=== PATIENT | male | born 1950 | race Two or more races ===

== ENCOUNTER 2019-05-17 16:29 | Inpatient (IN) | payer OTHER ==
[~2019-05-17] VITALS: Ht 168.9 cm; Wt 65.0 kg
[2019-05-17] MEDS ORDERED: MAGNESIUM HYDROXIDE 2,400 MG/30 ML ORAL.SUSP. PO PRN (17:30)
[2019-05-17] MEDS ORDERED: METHYL SALICYLATE/MENTHOL TOPICAL OINTMENT 29GM TUBE. TP PRN (17:30)
[2019-05-17] MEDS ORDERED: MAG HYDROX/AL HYDROX/SIMETH 30 ML ORAL.SUSP PO PRN (17:30)
[2019-05-17] MEDS ORDERED: ALBUTEROL SULFATE 2.5 MG/3 ML NEBU. INH PRN (17:45)
[2019-05-17] MEDS ORDERED: ATOR40TA59 PO (17:48)
[2019-05-17] MEDS ORDERED: DONE10TA7 PO (17:48)
[2019-05-17] MEDS ORDERED: DIVA500T17 PO (17:48)
[2019-05-17] MEDS ORDERED: BUDE10.22 IH (17:48)
[2019-05-17] MEDS ORDERED: DILT120C85 PO (17:48)
[2019-05-17] MEDS ORDERED: MELA3TAB2 PO (17:48)
[2019-05-17] MEDS ORDERED: APIX5TAB5 PO (17:48)
[2019-05-17] MEDS ORDERED: TRAZ-120 PO (17:48)
[2019-05-17] MEDS ORDERED: NICO1PAT25 TD (17:48)
[2019-05-17] MEDS ORDERED: ALBU2.5V8 INH (17:48)
[2019-05-17] MEDS ORDERED: ALLO300T PO (17:48)
[2019-05-17] MEDS ORDERED: PARO40TA3 PO (17:48)
[2019-05-17] MEDS ORDERED: GABA300C8 PO (17:48)
[2019-05-17] MEDS: traZODone 50 MG TABLET. PO SCH (19:47)
[2019-05-17] MEDS: GABAPENTIN 300 MG CAPSULE. PO SCH (19:47)
[2019-05-17] MEDS: APIXABAN 5 MG TABLET. PO SCH (19:47)
[2019-05-17] MEDS: ATORVASTATIN CALCIUM 20 MG TABLET PO SCH (19:47)
[2019-05-17] MEDS: ALBUTEROL SULFATE 2.5 MG/3 ML NEBU. NEB SCH (20:32)
[2019-05-17] MEDS: BUDESONIDE 0.5 MG/2 ML NEBU NEB SCH (20:34)
[2019-05-17 20:45] LABS: BACTERIA,URINE FEW /HPF (0-FEW); BILIRUBIN,URINE NEG (NEG); CLARITY,URINE HAZY; COLOR,URINE YELLOW; GLUCOSE,URINE NEG (NEG); NITRITE,URINE NEG (NEG); RBC,URINE OCC /HPF (0-2); SQUAMOUS EPITHELIAL CELL,UR OCC /LPF; UROBILINOGEN,URINE 0.2 mg/dL (0.2 mg/dL)
[2019-05-17] MEDS ORDERED: NON FORMULARY ITEM (Budesonide/Formoterol Fumarate (Symbicort 80-4.5 Mcg Inhaler) 2 PUFF) IH SCH (21:00)
--- NOTE | 2019-05-17 22:22 | PDOC ---
Exam Note: Samm Note: Please also refer to the separate dictated note~for this date of service dictated separately. Discussed the patient with Nursing staff reviewed the chart.~Reviewed interim history and current functioning. Reviewed vital signs,~Labs/ Radiology~and current medications noted below. Continue current treatment with the changes noted in the dictated addendum note Assessment: Vital Signs/I&O: Vital Signs Date Time Temp Pulse Resp B/P (MAP) Pulse Ox O2 Delivery O2 Flow Rate FiO2 05/17/19 20:35 96 Room Air Labs: Laboratory Tests Test 05/17/19 19:00 Urine Collection Type Unknown Urine Color Yellow Urine Clarity Hazy Urine pH 6.0 Urine Specific [place] 1.025 Urine Protein Neg (NEG-TRACE) Urine Glucose (UA) Neg mg/dL (NEG) Urine Ketones (Stick) Neg mg/dL (NEG) Urine Blood Trace (NEG) Urine Nitrite Neg (NEG) Urine Bilirubin Neg (NEG) Urine Urobilinogen Dipstick 0.2 mg/dL (0.2 mg/dL) Urine Leukocyte Esterase Trace (NEG) Urine RBC Occ /HPF (0-2) Urine WBC 1-4 /HPF (0-4) Urine Squamous Epithelial Cells Occ /LPF Urine Bacteria Few /HPF (0-FEW) Current Medications: Meds: Current Medications Medications (Trade) Dose Ordered Sig/Andie Route PRN Reason Start Time Stop Time Status Last Admin Dose Admin Apixaban (Eliquis) 5 mg BID PO 05/17/19 21:00 05/17/19 19:47 Atorvastatin Calcium (Lipitor) 40 mg QHS PO 05/17/19 21:00 05/17/19 19:47 Gabapentin (Neurontin) 300 mg QID PO 05/17/19 21:00 05/17/19 19:47 Trazodone HCl (Desyrel) 12.5 mg BID PO 05/17/19 21:00 05/17/19 19:47 Albuterol Sulfate (Ventolin) 2.5 mg RTQID NEB 05/17/19 20:00 05/17/19 20:32 Budesonide (Pulmicort) 0.5 mg RTBID NEB 05/17/19 20:00 05/17/19 20:34 I have reviewed the current psychotropics carefully including drug interactions. Risk benefit ratio favors no change other than as noted in my dictated progress note. Diagnosis: Problems: (1) Alcohol-induced persisting dementia (2) Anxiety disorder (3) Dementia associated with alcoholism with behavioral disturbance (4) Major neurocognitive disorder, due to vascular disease, with behavioral disturbance, mild (5) Mixed Alzheimer's and vascular dementia with behavior disturbances (6) Impulse control disorder AKI COX MD May 17, 2019 22:22
[2019-05-18] MEDS: BUDESONIDE 0.5 MG/2 ML NEBU NEB SCH ×2 (05:57→20:02)
[2019-05-18] MEDS: ALBUTEROL SULFATE 2.5 MG/3 ML NEBU. NEB SCH ×4 (05:59→20:02)
[2019-05-18 06:32] VITALS: BP 109/65
[2019-05-18 07:26] LABS: BASO # 0.1 x10^3/uL (0.0-0.2); BASO % 1 % (0-3); EOS # 0.1 x10^3/uL (0.0-0.7); EOS % 1 % (0-3); HEMATOCRIT 40.9 % (39.0-53.0); HEMOGLOBIN 13.2 g/dL (13.0-17.5); LYMPH # 2.1 x10^3/uL (1.0-4.8); LYMPH % 23 % (24-48); MEAN CORPUSCULAR HEMOGLOBIN 32 pg (25-35); MEAN CORPUSCULAR HGB CONC 32 g/dL (31-37); MEAN CORPUSCULAR VOLUME 98 fL (79-100); MONO # 0.6 x10^3/uL (0.0-1.1); MONO % 7 % (0-9); NEUT # 6.1 x10^3uL (1.8-7.7); NEUT % 68 % (31-73); PLATELET COUNT 278 x10^3/uL (140-400); RED BLOOD COUNT 4.19 x10^6/uL (4.30-5.70); RED CELL DISTRIBUTION WIDTH 15.1 % (11.5-14.5)
[2019-05-18 07:48] LABS: ALBUMIN 3.1 g/dL (3.4-5.0); CALCIUM 9.2 mg/dL (8.5-10.1); CREATININE 0.8 mg/dL (0.7-1.3); GFR 95.8; MAGNESIUM 1.7 mg/dL (1.8-2.4); POTASSIUM 4.2 mmol/L (3.5-5.1); TOTAL BILIRUBIN 0.3 mg/dL (0.2-1.0); TOTAL PROTEIN 6.1 g/dL (6.4-8.2); VAL ACID 24 mcg/mL (50-100)
[2019-05-18] MEDS ORDERED: NON FORMULARY ITEM (Nicotine (NICODERM CQ 14mg) 1 PATCH) TD SCH (09:00)
[2019-05-18] MEDS: traZODone 50 MG TABLET. PO SCH (09:11)
[2019-05-18] MEDS: NICOTINE 14MG PATCH. TD SCH (09:11)
[2019-05-18] MEDS: PARoxetine 20 MG TABLET PO SCH (09:11)
[2019-05-18] MEDS: DONEPEZIL HCL 10 MG TABLET PO SCH (09:12)
[2019-05-18] MEDS: ALLOPURINOL 300 MG TABLET. PO SCH (09:12)
[2019-05-18] MEDS: GABAPENTIN 300 MG CAPSULE. PO SCH ×4 (09:12→20:09)
[2019-05-18] MEDS: APIXABAN 5 MG TABLET. PO SCH ×2 (09:12→20:08)
[2019-05-18] MEDS ORDERED: DIVALPROEX ER 500 MG TAB.ER.24H PO SCH (12:00)
[2019-05-18 14:28] LABS: THYROID STIM HORMONE (TSH) 3.776 uIU/mL (0.358-3.740)
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
[2019-05-18] MEDS: QUEtiapine 25 MG TABLET. PO SCH (16:28)
[2019-05-18 16:30] VITALS: BP 99/61
[2019-05-18 19:09] LABS: THYROXINE 5.9 ug/dL (4.5-12.0)
--- NOTE | 2019-05-18 19:10 | RAD ---
INDICATION: Wheezing COMPARISON: None. FINDINGS: 2 view of chest obtained. Disorganization of the pulmonary markings bilaterally. Deformity of some ribs could be from old fracture. Mild haziness at right chest base IMPRESSION: 1. Disorganized pulmonary markings bilaterally. Would correlate for possible causes such as emphysema. 2. Questionable hazy opacity at right chest base. Could be secondary to a region of atelectasis given the location however early infiltrate can have this appearance if there is high clinical concern for infection. 3. Compression fracture near thoracic lumbar junction. Electronically signed by: Aries Lange MD (05/18/2019 7:07 PM) [facility]
[2019-05-18] MEDS: ATORVASTATIN CALCIUM 20 MG TABLET PO SCH (20:08)
[2019-05-18] MEDS: MELATONIN 3 MG TABLET PO PRN (20:09)
[2019-05-18] MEDS: DIVALPROEX ER 500 MG TAB.ER.24H PO SCH (20:10)
--- NOTE | 2019-05-18 22:38 | PDOC ---
Exam Note: Samm Note: Please also refer to the separate dictated note~for this date of service dictated separately.~Patient seen individually. Discussed the patient with Nursing staff reviewed the chart.~Reviewed interim history and current functioning. Reviewed vital signs,~Labs/ Radiology~and current medications noted below. Continue current treatment with the changes noted in the dictated addendum note Assessment: Vital Signs/I&O: Vital Signs Date Time Temp Pulse Resp B/P (MAP) Pulse Ox O2 Delivery O2 Flow Rate FiO2 05/18/19 20:04 97 Room Air 05/18/19 16:30 98.3 58 20 99/61 (74) I & O 05/17/19 05/17/19 05/18/19 14:59 22:59 06:59 Intake Total 120 ml Balance 120 ml Labs: Laboratory Tests Test 05/18/19 07:14 White Blood Count 9.0 x10^3/uL (4.0-11.0) Red Blood Count 4.19 x10^6/uL (4.30-5.70) L Hemoglobin 13.2 g/dL (13.0-17.5) Hematocrit 40.9 % (39.0-53.0) Mean Corpuscular Volume 98 fL (79-100) Mean Corpuscular Hemoglobin 32 pg (25-35) Mean Corpuscular Hemoglobin Concent 32 g/dL (31-37) Red Cell Distribution Width 15.1 % (11.5-14.5) H Platelet Count 278 x10^3/uL (140-400) Neutrophils (%) (Auto) 68 % (31-73) Lymphocytes (%) (Auto) 23 % (24-48) L Monocytes (%) (Auto) 7 % (0-9) Eosinophils (%) (Auto) 1 % (0-3) Basophils (%) (Auto) 1 % (0-3) Neutrophils # (Auto) 6.1 x10^3uL (1.8-7.7) Lymphocytes # (Auto) 2.1 x10^3/uL (1.0-4.8) Monocytes # (Auto) 0.6 x10^3/uL (0.0-1.1) Eosinophils # (Auto) 0.1 x10^3/uL (0.0-0.7) Basophils # (Auto) 0.1 x10^3/uL (0.0-0.2) Sodium Level 141 mmol/L (136-145) Potassium Level 4.2 mmol/L (3.5-5.1) Chloride Level 105 mmol/L (98-107) Carbon Dioxide Level 30 mmol/L (21-32) Anion Gap 6 (6-14) Blood Urea Nitrogen 13 mg/dL (8-26) Creatinine 0.8 mg/dL (0.7-1.3) Estimated GFR (Cockcroft-Gault) 95.8 BUN/Creatinine Ratio 16 (6-20) Glucose Level 98 mg/dL (70-99) Calcium Level 9.2 mg/dL (8.5-10.1) Magnesium Level 1.7 mg/dL (1.8-2.4) L Iron Level 58 ug/dL (65-175) L Total Iron Binding Capacity 332 ug/dL (250-450) Iron Saturation 17 % (15-34) Total Bilirubin 0.3 mg/dL (0.2-1.0) Aspartate Amino Transferase (AST) 16 U/L (15-37) Alanine Aminotransferase (ALT) 30 U/L (16-63) Alkaline Phosphatase 100 U/L (46-116) Total Protein 6.1 g/dL (6.4-8.2) L Albumin 3.1 g/dL (3.4-5.0) L Albumin/Globulin Ratio 1.0 (1.0-1.7) Triglycerides Level 56 mg/dL (0-150) Cholesterol Level 115 mg/dL (0-200) LDL Cholesterol, Calculated 55 mg/dL (0-100) VLDL Cholesterol, Calculated 11 mg/dL (0-40) Non-HDL Cholesterol Calculated 66 mg/dL (0-129) HDL Cholesterol 49 mg/dL (40-60) Cholesterol/HDL Ratio 2.0 25-Hydroxy Vitamin D Total 34.1 ng/mL (30-100) Thyroid Stimulating Hormone (TSH) 3.776 uIU/mL (0.358-3.740) Thyroxine (T4) 5.9 ug/dL (4.5-12.0) Total Triiodothyronine (TT3) 102 ng/dL (71-180) Valproic Acid Level 24 mcg/mL (50-100) L Valproic Acid Last Dose Date 05/17/19 Valproic Acid Last Dose Time 1200 Treponema pallidum Antibody Nonreactive (Nonreactive) Current Medications: Meds: Current Medications Medications (Trade) Dose Ordered Sig/Andie Route PRN Reason Start Time Stop Time Status Last Admin Dose Admin Nicotine (Nicoderm Cq 14mg) 1 patch DAILY TD 05/18/19 09:00 05/18/19 09:11 Allopurinol (Zyloprim) 300 mg DAILY PO 05/18/19 09:00 05/18/19 09:12 Diltiazem HCl (Cardizem 24hr Cd) 120 mg DAILY PO 05/18/19 09:00 05/18/19 09:11 Donepezil HCl (Aricept) 10 mg DAILY PO 05/18/19 09:00 05/18/19 09:12 Paroxetine HCl (Paxil) 40 mg DAILY PO 05/18/19 09:00 05/18/19 09:11 Divalproex Sodium (Depakote Er) 1,000 mg DAILY@2000 PO 05/18/19 20:00 05/18/19 20:10 Quetiapine Fumarate (SEROquel) 12.5 mg 0900,1700 PO 05/18/19 17:00 05/18/19 16:28 I have reviewed the current psychotropics carefully including drug interactions. Risk benefit ratio favors no change other than as noted in my dictated progress note. Diagnosis: Problems: (1) Alcohol-induced persisting dementia (2) Anxiety disorder (3) Dementia associated with alcoholism with behavioral disturbance (4) Major neurocognitive disorder, due to vascular disease, with behavioral disturbance, mild (5) Mixed Alzheimer's and vascular dementia with behavior disturbances (6) Impulse control disorder AKI COX MD May 18, 2019 22:38
[2019-05-19 02:07] LABS: HEMOGLOBIN A1C 6.6 % (4.8-5.6)
[2019-05-19] MEDS: ALBUTEROL SULFATE 2.5 MG/3 ML NEBU. NEB SCH ×4 (06:00→20:11)
[2019-05-19] MEDS: BUDESONIDE 0.5 MG/2 ML NEBU NEB SCH ×2 (06:00→20:11)
[2019-05-19 06:24] VITALS: BP 103/65
[2019-05-19] MEDS: NICOTINE 14MG PATCH. TD SCH (08:52)
[2019-05-19] MEDS: DONEPEZIL HCL 10 MG TABLET PO SCH (08:53)
[2019-05-19] MEDS: QUEtiapine 25 MG TABLET. PO SCH ×2 (08:53→16:41)
[2019-05-19] MEDS: ALLOPURINOL 300 MG TABLET. PO SCH (08:53)
[2019-05-19] MEDS: PARoxetine 20 MG TABLET PO SCH (08:53)
[2019-05-19] MEDS: APIXABAN 5 MG TABLET. PO SCH ×2 (08:53→19:58)
[2019-05-19] MEDS: GABAPENTIN 300 MG CAPSULE. PO SCH ×4 (08:54→19:58)
[2019-05-19] MEDS: ACETAMINOPHEN 325 MG TABLET PO PRN (13:26)
[2019-05-19] MEDS: CETIRIZINE HCL 10 MG TABLET PO SCH (13:26)
[2019-05-19] MEDS: FLUTICASONE 50MCG/NASAL SPRAY 16GM BOTTLE. NS SCH (14:00)
--- NOTE | 2019-05-19 15:23 | RAD ---
Examination: CT CHEST WO CONTRAST History: Abnormal finding on chest x-ray Comparison/Correlation: 05/18/2019 two-view chest x-ray exam Findings: Axial images of chest were obtained without contrast. Sagittal and coronal reformatted images were provided. Significant motion throughout the exam on multiple images including at the lower lung paredes may limit assessment. The anterior right calcific sulcus was not included on this exam isn't entirely. Calcified nodule at the anterior left upper lung field noted. No infiltrate or pleural effusion. Tracheal bronchial tree is grossly unremarkable. Diffuse marked calcification of the coronary arteries is notable. No pericardial or pleural effusion. No infiltrates. No large pulmonary nodule or mass. Resection of a small nodule would likely be limited with the motion present on images obtained. Small hiatal hernia is present Multiple old right-sided rib fractures are present. Degenerative disc space narrowing of the lower cervical spine. T12 vertebral body compression deformity is present. Impression: No infiltrates. Limited exam. Hiatal hernia. T12 compression wedge deformity of indeterminate age. PQRS Compliance Statement: One or more of the following individualized dose reduction techniques were utilized for this examination: 1. Automated exposure control 2. Adjustment of the mA and/or kV according to patient size 3. Use of iterative reconstruction technique Electronically signed by: Ramírez Seth MD (05/19/2019 3:20 PM) [id number]
[2019-05-19 15:55] VITALS: BP 102/66
--- NOTE | 2019-05-19 19:28 | CONS ---
DATE OF CONSULTATION: 05/18/2019 HISTORY OF PRESENT ILLNESS: The patient is a 68-year-old male patient who has been living at [facility] for the past 10 years, has been getting progressively more confused, specifically for short term events, more so since he developed pneumonia, was treated at that time at [facility]. Has been wondering, agitated with cares, exit seeking, disruptive, delusional and much more confused. He has had sleep and appetite changes and mood swings, was admitted for inpatient psychiatric stabilization. PAST PSYCHIATRIC HISTORY: Significant for alcohol abuse and dependence and progressive dementia, delusion, depression and mood swings. PAST MEDICAL HISTORY: Significant for pulmonary embolism, type 2 diabetes, chronic obstructive pulmonary disease, coronary artery disease, hyperlipidemia, peripheral neuropathy, gout, prostate cancer, and mixed PTSD. ALLERGIES: He is allergic to ERYTHROMYCIN. CODE STATUS: DNR. FAMILY HISTORY: Noncontributory. SOCIAL HISTORY: He has been a resident at [facility]. He used to be a smoker, has also a history of extensive alcohol abuse. MEDICATIONS: He is currently on following medications: He is on Aricept 10 mg once a day, albuterol sulfate 2 puffs every 8 hours, nicotine 14 mg topically daily, apixaban 5 mg twice a day, atorvastatin calcium 40 mg at bedtime, diltiazem 120 mg daily, divalproex sodium 500 mg at noon, gabapentin 300 mg 4 times a day, paroxetine 40 mg once a day, trazodone 12.5 mg twice a day, Symbicort 80/4.5 two puffs twice a day, allopurinol 300 mg daily, melatonin 3 mg at bedtime. PHYSICAL EXAMINATION: GENERAL: When I examined him, the patient looked somewhat pale, but no jaundice, cyanosis, or thyromegaly. No jugular venous distension. No limb edema. VITAL SIGNS: His heart rate was 58, blood pressure was 99/61, temperature was 98.3, respiratory rate 20, and oxygen saturation was 97%. HEAD, EYES, EARS, NOSE, AND THROAT: Showed normocephalic, atraumatic. NECK: Supple. HEART: Showed normal first and second heart sounds. No gallop, rub, or murmur. CHEST: Clear to auscultation. No crepitation or rhonchi. ABDOMEN: Distended, soft. No guarding or rigidity. No organomegaly. All hernial orifice intact. Bowel sounds normal. NEUROLOGIC: He was demented, but without any obvious lateralizing sign. All his cranial nerves are intact. EXTREMITIES: He moves extremities without difficulty, ambulates without assistance or assistive devices, however, he seemed to be unsteady on his feet. LABORATORY DATA: His lab work showed a white cell count 9000, hemoglobin 13, hematocrit 41, MCV 98 and platelet count 278,000. Serum sodium 141, potassium 4.2, chloride 105, bicarbonate 30, anion gap of 6, BUN 13, creatinine 0.8, estimated GFR was 96 mL per minute. His calcium and magnesium was normal. Serum iron, TIBC and iron saturation were consistent with iron deficiency anemia. His urinalysis was essentially unremarkable. Toxic screen was negative and Treponema pallidum antibodies was nonreactive. ASSESSMENT AND PLAN: In summary, this is a 68-year-old male patient who has been living at [facility] for the last 10 years, has been getting progressively more confused, specifically for short term events, more so since he developed pneumonia and was treated at [facility] in the recent past. Has multiple medical problems including type 2 diabetes mellitus, chronic obstructive pulmonary disease, pulmonary embolism, hyperlipidemia, peripheral neuropathy, gout, prostate cancer and posttraumatic stress disorder. All in all, the patient seemed to be medically stable. I will definitely continue all his current medication and follow all his labs still pending and will make any necessary recommendation. Thank you, Dr. Singh for allowing me to participate in the care of this patient. MALISSA MCDOWELL MD DR: NANCY/alisa JOB#: [id number] / [id number]
[2019-05-19] MEDS: ATORVASTATIN CALCIUM 20 MG TABLET PO SCH (19:58)
[2019-05-19] MEDS: DIVALPROEX ER 500 MG TAB.ER.24H PO SCH (19:58)
--- NOTE | 2019-05-19 20:44 | PN ---
DATE: 05/18/2019 PSYCHIATRIC PROGRESS NOTE This late entry 05/18/2019 covers elements not covered in my initial note. SUBJECTIVE: I met with the patient evening of 05/18/2019. SUBJECTIVE: The patient was also staffed at a treatment team meeting with the entire team in the morning. We reviewed his history. He had been living at [facility] for about 10 years, had been recently more confused, agitated, aggressive with cares on the unit, wandering, exit seeking. REVIEW OF SYSTEMS: No CV, , pulmonary, eye, ENT system symptoms on review. Reliability poor. MENTAL STATUS EXAM: Oriented to himself. Insight, judgment, recent and remote memory, attention, concentration, fund of knowledge poor, consistent with his diagnosis. IMPRESSION: Major neurocognitive disorder, multifactorial including alcohol, Alzheimer, vascular with delusion, depression, behavioral disturbance; anxiety disorder, unspecified; impulse control disorder, unspecified. PLAN: The patient's valproic acid level is subtherapeutic, increase Depakote ER to 1 gram and change it to the bedtime. Check CBC, CMP, valproic acid level in 3 days since the current valproic acid level is 24. Change the trazodone 12.5 mg b.i.d. scheduled to Seroquel 12.5 mg p.o. 9:00 a.m. and 5 p.m. Add Zyprexa p.r.n. Continue rest of the psychotropics unchanged including Aricept, Neurontin, melatonin and Paxil 40 mg a day. May consider changing Paxil to an alternate SSRI agent in due course. AKI COX MD DR: RHYS/alisa JOB#: [id number] / [id number]
--- NOTE | 2019-05-19 22:08 | PDOC ---
Exam Note: Asmm Note: Please also refer to the separate dictated note~for this date of service dictated separately.~Patient seen individually. Discussed the patient with Nursing staff reviewed the chart.~Reviewed interim history and current functioning. Reviewed vital signs,~Labs/ Radiology~and current medications noted below. Continue current treatment with the changes noted in the dictated addendum note Assessment: Vital Signs/I&O: Vital Signs Date Time Temp Pulse Resp B/P (MAP) Pulse Ox O2 Delivery O2 Flow Rate FiO2 05/19/19 20:15 98 Room Air 05/19/19 15:55 97.4 66 20 102/66 (78) I & O 05/18/19 05/18/19 05/19/19 15:00 23:00 07:00 Intake Total 720 ml 240 ml Balance 720 ml 240 ml Current Medications: Meds: Current Medications Medications (Trade) Dose Ordered Sig/Andie Route PRN Reason Start Time Stop Time Status Last Admin Dose Admin Cetirizine HCl (ZyrTEC) 10 mg DAILY PO 05/19/19 14:00 05/19/19 13:26 I have reviewed the current psychotropics carefully including drug interactions. Risk benefit ratio favors no change other than as noted in my dictated progress note. Diagnosis: Problems: (1) Alcohol-induced persisting dementia (2) Anxiety disorder (3) Dementia associated with alcoholism with behavioral disturbance (4) Major neurocognitive disorder, due to vascular disease, with behavioral disturbance, mild (5) Mixed Alzheimer's and vascular dementia with behavior disturbances (6) Impulse control disorder AKI COX MD May 19, 2019 22:07
[2019-05-20 05:26] VITALS: BP 102/63
[2019-05-20] MEDS: ALBUTEROL SULFATE 2.5 MG/3 ML NEBU. NEB SCH ×4 (05:49→20:00)
[2019-05-20] MEDS: NICOTINE 14MG PATCH. TD SCH ×2 (08:12→08:45)
[2019-05-20] MEDS: ALLOPURINOL 300 MG TABLET. PO SCH (08:12)
[2019-05-20] MEDS: CETIRIZINE HCL 10 MG TABLET PO SCH (08:12)
[2019-05-20] MEDS: APIXABAN 5 MG TABLET. PO SCH ×2 (08:12→19:32)
[2019-05-20] MEDS: PARoxetine 20 MG TABLET PO SCH (08:12)
[2019-05-20] MEDS: DONEPEZIL HCL 10 MG TABLET PO SCH (08:12)
[2019-05-20] MEDS: QUEtiapine 25 MG TABLET. PO SCH ×2 (08:13→16:32)
[2019-05-20] MEDS: FLUTICASONE 50MCG/NASAL SPRAY 16GM BOTTLE. NS SCH (08:13)
[2019-05-20] MEDS: GABAPENTIN 300 MG CAPSULE. PO SCH ×4 (08:14→19:32)
[2019-05-20] MEDS: BUDESONIDE 0.5 MG/2 ML NEBU NEB SCH ×2 (10:19→20:00)
[2019-05-20 15:34] VITALS: BP 105/50
[2019-05-20] MEDS: ATORVASTATIN CALCIUM 20 MG TABLET PO SCH (19:32)
[2019-05-20] MEDS: DIVALPROEX ER 500 MG TAB.ER.24H PO SCH (19:32)
[2019-05-20] MEDS: rOPINIRole 0.5 MG TABLET. PO SCH (19:34)
--- NOTE | 2019-05-20 23:06 | PDOC ---
Exam Note: Samm Note: Please also refer to the separate dictated note~for this date of service dictated separately.~Patient seen individually. Discussed the patient with Nursing staff reviewed the chart.~Reviewed interim history and current functioning. Reviewed vital signs,~Labs/ Radiology~and current medications noted below. Continue current treatment with the changes noted in the dictated addendum note Assessment: Vital Signs/I&O: Vital Signs Date Time Temp Pulse Resp B/P (MAP) Pulse Ox O2 Delivery O2 Flow Rate FiO2 05/20/19 16:31 95 Room Air 05/20/19 15:34 98.6 63 16 105/50 (68) I & O 05/19/19 05/19/19 05/20/19 15:00 23:00 07:00 Intake Total 840 ml 240 ml Balance 840 ml 240 ml Current Medications: Meds: Current Medications Medications (Trade) Dose Ordered Sig/Andie Route PRN Reason Start Time Stop Time Status Last Admin Dose Admin Ropinirole HCl (Requip) 0.5 mg TID PO 05/20/19 21:00 05/20/19 19:34 I have reviewed the current psychotropics carefully including drug interactions. Risk benefit ratio favors no change other than as noted in my dictated progress note. Diagnosis: Problems: (1) Alcohol-induced persisting dementia (2) Anxiety disorder (3) Dementia associated with alcoholism with behavioral disturbance (4) Major neurocognitive disorder, due to vascular disease, with behavioral disturbance, mild (5) Mixed Alzheimer's and vascular dementia with behavior disturbances (6) Impulse control disorder AKI COX MD May 20, 2019 23:06
[2019-05-20] MEDS: MELATONIN 3 MG TABLET PO PRN (23:32)
[2019-05-20] MEDS: ACETAMINOPHEN 325 MG TABLET PO PRN (23:34)
[2019-05-21] MEDS: ALBUTEROL SULFATE 2.5 MG/3 ML NEBU. NEB SCH ×4 (05:49→20:00)
[2019-05-21 06:17] VITALS: BP 108/62
[2019-05-21] MEDS: FLUTICASONE 50MCG/NASAL SPRAY 16GM BOTTLE. NS SCH (08:02)
[2019-05-21] MEDS: rOPINIRole 0.5 MG TABLET. PO SCH ×3 (08:04→20:04)
[2019-05-21] MEDS: QUEtiapine 25 MG TABLET. PO SCH ×2 (08:04→16:28)
[2019-05-21] MEDS: DONEPEZIL HCL 10 MG TABLET PO SCH (08:04)
[2019-05-21] MEDS: APIXABAN 5 MG TABLET. PO SCH ×2 (08:04→20:04)
[2019-05-21] MEDS: CETIRIZINE HCL 10 MG TABLET PO SCH (08:05)
[2019-05-21] MEDS: PARoxetine 20 MG TABLET PO SCH (08:05)
[2019-05-21] MEDS: ALLOPURINOL 300 MG TABLET. PO SCH (08:05)
[2019-05-21] MEDS: NICOTINE 14MG PATCH. TD SCH (08:05)
[2019-05-21] MEDS: GABAPENTIN 300 MG CAPSULE. PO SCH ×4 (08:09→20:05)
[2019-05-21 09:47] LABS: BASO # 0.1 x10^3/uL (0.0-0.2); BASO % 1 % (0-3); EOS % 1 % (0-3); HEMATOCRIT 37.7 % (39.0-53.0); HEMOGLOBIN 12.3 g/dL (13.0-17.5); LYMPH # 1.3 x10^3/uL (1.0-4.8); LYMPH % 16 % (24-48); MEAN CORPUSCULAR HEMOGLOBIN 32 pg (25-35); MEAN CORPUSCULAR HGB CONC 33 g/dL (31-37); MEAN CORPUSCULAR VOLUME 98 fL (79-100); MONO # 0.4 x10^3/uL (0.0-1.1); MONO % 5 % (0-9); NEUT # 6.4 x10^3uL (1.8-7.7); NEUT % 77 % (31-73); PLATELET COUNT 204 x10^3/uL (140-400); RED BLOOD COUNT 3.85 x10^6/uL (4.30-5.70); RED CELL DISTRIBUTION WIDTH 14.9 % (11.5-14.5); WHITE BLOOD COUNT 8.2 x10^3/uL (4.0-11.0)
[2019-05-21 10:03] LABS: ALBUMIN 2.6 g/dL (3.4-5.0); ALK PHOS 90 U/L (46-116); ALT (SGPT) 28 U/L (16-63); ANION GAP 7 (6-14); AST (SGOT) 12 U/L (15-37); BLOOD UREA NITROGEN 14 mg/dL (8-26); BUN/CREATININE RATIO 20 (6-20); CALCIUM 8.3 mg/dL (8.5-10.1); CARBON DIOXIDE 30 mmol/L (21-32); CHLORIDE 105 mmol/L (98-107); CREATININE 0.7 mg/dL (0.7-1.3); GFR 111.8; GLUCOSE 254 mg/dL (70-99); POTASSIUM 3.7 mmol/L (3.5-5.1); SODIUM 142 mmol/L (136-145); TOTAL BILIRUBIN 0.2 mg/dL (0.2-1.0); TOTAL PROTEIN 5.3 g/dL (6.4-8.2)
[2019-05-21 10:05] LABS: VAL ACID 64 mcg/mL (50-100)
[2019-05-21] MEDS: BUDESONIDE 0.5 MG/2 ML NEBU NEB SCH ×2 (10:06→20:00)
[2019-05-21 16:14] VITALS: BP 143/82
[2019-05-21] MEDS: ATORVASTATIN CALCIUM 20 MG TABLET PO SCH (20:04)
[2019-05-21] MEDS: DIVALPROEX ER 500 MG TAB.ER.24H PO SCH (20:05)
[2019-05-21] MEDS: CIPROFLOXACIN HCL 250 MG TABLET PO SCH (20:06)
[2019-05-21] MEDS: dilTIAZem HCL 30 MG TABLET PO SCH (20:53)
--- NOTE | 2019-05-21 21:41 | PDOC ---
Exam Note: Samm Note: Please also refer to the separate dictated note~for this date of service dictated separately.~Patient seen individually. Discussed the patient with Nursing staff reviewed the chart.~Reviewed interim history and current functioning. Reviewed vital signs,~Labs/ Radiology~and current medications noted below. Continue current treatment with the changes noted in the dictated addendum note Assessment: Vital Signs/I&O: Vital Signs Date Time Temp Pulse Resp B/P (MAP) Pulse Ox O2 Delivery O2 Flow Rate FiO2 05/21/19 20:53 81 143/82 05/21/19 16:14 99.6 18 92 05/21/19 16:08 Room Air I & O 05/20/19 05/20/19 05/21/19 15:00 23:00 07:00 Intake Total 720 ml 240 ml Balance 720 ml 240 ml Labs: Laboratory Tests Test 05/21/19 09:35 White Blood Count 8.2 x10^3/uL (4.0-11.0) Red Blood Count 3.85 x10^6/uL (4.30-5.70) L Hemoglobin 12.3 g/dL (13.0-17.5) L Hematocrit 37.7 % (39.0-53.0) L Mean Corpuscular Volume 98 fL (79-100) Mean Corpuscular Hemoglobin 32 pg (25-35) Mean Corpuscular Hemoglobin Concent 33 g/dL (31-37) Red Cell Distribution Width 14.9 % (11.5-14.5) H Platelet Count 204 x10^3/uL (140-400) Neutrophils (%) (Auto) 77 % (31-73) H Lymphocytes (%) (Auto) 16 % (24-48) L Monocytes (%) (Auto) 5 % (0-9) Eosinophils (%) (Auto) 1 % (0-3) Basophils (%) (Auto) 1 % (0-3) Neutrophils # (Auto) 6.4 x10^3uL (1.8-7.7) Lymphocytes # (Auto) 1.3 x10^3/uL (1.0-4.8) Monocytes # (Auto) 0.4 x10^3/uL (0.0-1.1) Eosinophils # (Auto) 0.0 x10^3/uL (0.0-0.7) Basophils # (Auto) 0.1 x10^3/uL (0.0-0.2) Sodium Level 142 mmol/L (136-145) Potassium Level 3.7 mmol/L (3.5-5.1) Chloride Level 105 mmol/L (98-107) Carbon Dioxide Level 30 mmol/L (21-32) Anion Gap 7 (6-14) Blood Urea Nitrogen 14 mg/dL (8-26) Creatinine 0.7 mg/dL (0.7-1.3) Estimated GFR (Cockcroft-Gault) 111.8 BUN/Creatinine Ratio 20 (6-20) Glucose Level 254 mg/dL (70-99) H Calcium Level 8.3 mg/dL (8.5-10.1) L Total Bilirubin 0.2 mg/dL (0.2-1.0) Aspartate Amino Transferase (AST) 12 U/L (15-37) L Alanine Aminotransferase (ALT) 28 U/L (16-63) Alkaline Phosphatase 90 U/L (46-116) Total Protein 5.3 g/dL (6.4-8.2) L Albumin 2.6 g/dL (3.4-5.0) L Albumin/Globulin Ratio 1.0 (1.0-1.7) Valproic Acid Level 64 mcg/mL (50-100) Valproic Acid Last Dose Date 05/20/19 Valproic Acid Last Dose Time 2100 Current Medications: Meds: Current Medications Medications (Trade) Dose Ordered Sig/Andie Route PRN Reason Start Time Stop Time Status Last Admin Dose Admin Ciprofloxacin (Cipro) 250 mg BID PO 05/21/19 21:00 05/28/19 20:59 05/21/19 20:06 Diltiazem HCl (Cardizem) 30 mg Q8HRS PO 05/21/19 22:00 05/21/19 20:53 I have reviewed the current psychotropics carefully including drug interactions. Risk benefit ratio favors no change other than as noted in my dictated progress note. 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
--- NOTE | 2019-05-21 21:54 | PN ---
DATE: 05/20/2019 PSYCHIATRIC PROGRESS NOTE This late entry 05/20/2019 covers elements not covered in my initial note. SUBJECTIVE: I met with the patient in the evening. The patient slept 7 hours previous night. The patient was confused, wandering previous night, compliant, withdrawn to his room, at times over sedated. He was started on Requip 0.5 mg t.i.d. for restless legs per Dr. Medrano. Valproic acid level will be checked morning of 05/21/2019. UA is being sent for culture and sensitivity. REVIEW OF SYSTEMS: No CV, , pulmonary, eye, ENT system symptoms on review. Reliability poor. MENTAL STATUS EXAM: Oriented to himself. Insight, judgment, recent and remote memory, attention, concentration, fund of knowledge poor, consistent with his diagnosis mentioned in my initial note. PLAN: No change from initial note. Treat the UTI once the culture and sensitivity returns. AKI COX MD DR: RHYS/alisa JOB#: [id number] / [id number]
--- NOTE | 2019-05-22 01:56 | PN ---
DATE: 05/19/2019 PSYCHIATRIC PROGRESS NOTE This is a late entry 05/19/2019 covers elements not covered in my initial note. SUBJECTIVE: I met with the patient in the evening. The patient slept 7-3/4 hours previous night. Previous night, he was quite disorganized, confused, wandering. During the day, 05/19/2019, he has been calmer, compliant, still wandering. CT chest was done per Dr. Barros. He does have tremors. We will consult Dr. Medrano, Neurology for this. REVIEW OF SYSTEMS: No CV, , pulmonary, eye, ENT system symptoms on review. Reliability poor. MENTAL STATUS EXAM: Oriented to himself. Insight, judgment, recent and remote memory, attention, concentration, fund of knowledge poor, consistent with his diagnoses mentioned in my initial note. PLAN: No change from initial note. MAN Pastor COX MD DR: RHYS/alisa JOB#: [id number] / [id number]
[2019-05-22] MEDS: dilTIAZem HCL 30 MG TABLET PO SCH ×4 (05:19→20:12)
--- NOTE | 2019-05-22 06:21 | EKG ---
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
[2019-05-22] MEDS: ALBUTEROL SULFATE 2.5 MG/3 ML NEBU. NEB SCH ×4 (06:22→21:21)
[2019-05-22] MEDS: BUDESONIDE 0.5 MG/2 ML NEBU NEB SCH ×2 (06:22→21:21)
[2019-05-22 06:49] VITALS: BP 106/64
[2019-05-22] MEDS: FLUTICASONE 50MCG/NASAL SPRAY 16GM BOTTLE. NS SCH (07:55)
[2019-05-22] MEDS: CIPROFLOXACIN HCL 250 MG TABLET PO SCH ×2 (07:56→20:12)
[2019-05-22] MEDS: APIXABAN 5 MG TABLET. PO SCH ×2 (07:56→20:12)
[2019-05-22] MEDS: DONEPEZIL HCL 10 MG TABLET PO SCH (07:56)
[2019-05-22] MEDS: PARoxetine 20 MG TABLET PO SCH (07:57)
[2019-05-22] MEDS: rOPINIRole 0.5 MG TABLET. PO SCH ×3 (07:57→20:12)
[2019-05-22] MEDS: GABAPENTIN 300 MG CAPSULE. PO SCH ×4 (07:57→20:12)
[2019-05-22] MEDS: CETIRIZINE HCL 10 MG TABLET PO SCH (07:57)
[2019-05-22] MEDS: QUEtiapine 25 MG TABLET. PO SCH ×2 (07:57→16:31)
[2019-05-22] MEDS: NICOTINE 14MG PATCH. TD SCH (07:58)
[2019-05-22] MEDS: ALLOPURINOL 300 MG TABLET. PO SCH (07:58)
[2019-05-22 13:20] VITALS: BP 106/67
[2019-05-22 16:17] VITALS: BP 125/75
[2019-05-22] MEDS: ATORVASTATIN CALCIUM 20 MG TABLET PO SCH (20:12)
[2019-05-22] MEDS: DIVALPROEX ER 500 MG TAB.ER.24H PO SCH (20:13)
[2019-05-22] MEDS: LACTOBACILLUS RHAMNOSUS GG 1 CAPSULE. PO SCH (20:14)
[2019-05-22] MEDS: ACETAMINOPHEN 325 MG TABLET PO PRN (21:23)
--- NOTE | 2019-05-22 22:30 | PDOC ---
Exam Note: Samm Note: Please also refer to the separate dictated note~for this date of service dictated separately.~Patient seen individually. Discussed the patient with Nursing staff reviewed the chart.~Reviewed interim history and current functioning. Reviewed vital signs,~Labs/ Radiology~and current medications noted below. Continue current treatment with the changes noted in the dictated addendum note Assessment: Vital Signs/I&O: Vital Signs Date Time Temp Pulse Resp B/P (MAP) Pulse Ox O2 Delivery O2 Flow Rate FiO2 05/22/19 21:21 94 Room Air 05/22/19 20:12 68 125/75 05/22/19 16:17 97.9 20 I & O 05/21/19 05/21/19 05/22/19 14:59 22:59 06:59 Intake Total 480 ml 240 ml Balance 480 ml 240 ml Current Medications: Meds: Current Medications Medications (Trade) Dose Ordered Sig/Andie Route PRN Reason Start Time Stop Time Status Last Admin Dose Admin Lactobacillus Rhamnosus (Culturelle) 1 cap BID PO 05/22/19 21:00 05/22/19 20:14 I have reviewed the current psychotropics carefully including drug interactions. Risk benefit ratio favors no change other than as noted in my dictated progress note. 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
[2019-05-22] MEDS: MELATONIN 3 MG TABLET PO PRN (22:45)
--- NOTE | 2019-05-23 00:45 | PN ---
DATE: 05/21/2019 SUBJECTIVE: This late entry, 05/21, covers elements not covered in my initial note. I met with the patient in the evening. The patient slept 5-1/4 hours previous night. He has some word finding problems, some tremors as well. Glucose 254, A1c 6.6. He remains on Cipro for UTI. REVIEW OF SYSTEMS: No CV, , pulmonary, eye, ENT system symptoms on review. Reliability poor. MENTAL STATUS EXAM: Oriented to himself. Insight, judgment, recent and remote memory, attention, concentration, fund of knowledge poor, consistent with his diagnosis. IMPRESSION: Major neurocognitive disorder, Alzheimer, vascular with delusion, depression, behavioral disturbance. Rest unchanged including urinary tract infection. PLAN: Continue current psychotropics. We will follow labs level on the Depakote, adjust to reach therapeutic level. He has been started on Requip for restless legs per Dr. Medrano. MAN Pastor COX MD DR: RHYS/alisa JOB#: [id number] / [id number]
[2019-05-23 05:58] VITALS: BP 101/65
[2019-05-23] MEDS: BUDESONIDE 0.5 MG/2 ML NEBU NEB SCH ×2 (06:04→20:28)
[2019-05-23] MEDS: ALBUTEROL SULFATE 2.5 MG/3 ML NEBU. NEB SCH ×4 (06:04→20:28)
[2019-05-23] MEDS: dilTIAZem HCL 30 MG TABLET PO SCH ×3 (06:24→19:23)
[2019-05-23] MEDS: PARoxetine 20 MG TABLET PO SCH (08:40)
[2019-05-23] MEDS: CETIRIZINE HCL 10 MG TABLET PO SCH (08:41)
[2019-05-23] MEDS: CIPROFLOXACIN HCL 250 MG TABLET PO SCH ×2 (08:41→19:21)
[2019-05-23] MEDS: QUEtiapine 25 MG TABLET. PO SCH ×2 (08:41→17:09)
[2019-05-23] MEDS: APIXABAN 5 MG TABLET. PO SCH ×2 (08:42→19:23)
[2019-05-23] MEDS: DONEPEZIL HCL 10 MG TABLET PO SCH (08:42)
[2019-05-23] MEDS: LACTOBACILLUS RHAMNOSUS GG 1 CAPSULE. PO SCH ×2 (08:42→19:23)
[2019-05-23] MEDS: ALLOPURINOL 300 MG TABLET. PO SCH (08:42)
[2019-05-23] MEDS: NICOTINE 14MG PATCH. TD SCH (08:42)
[2019-05-23] MEDS: rOPINIRole 0.5 MG TABLET. PO SCH ×3 (08:42→19:22)
[2019-05-23] MEDS: GABAPENTIN 300 MG CAPSULE. PO SCH ×4 (08:48→19:23)
[2019-05-23] MEDS: FLUTICASONE 50MCG/NASAL SPRAY 16GM BOTTLE. NS SCH (09:00)
[2019-05-23 16:15] VITALS: BP 105/67
[2019-05-23] MEDS ORDERED: traZODone 50 MG TABLET. PO PRN (16:45)
[2019-05-23] MEDS: DIVALPROEX ER 500 MG TAB.ER.24H PO SCH (19:22)
[2019-05-23] MEDS: ATORVASTATIN CALCIUM 20 MG TABLET PO SCH (19:22)
[2019-05-23] MEDS: traZODone 50 MG TABLET. PO SCH (19:24)
--- NOTE | 2019-05-23 22:39 | PDOC ---
Exam Note: Samm Note: Please also refer to the separate dictated note~for this date of service dictated separately.~Patient seen individually. Discussed the patient with Nursing staff reviewed the chart.~Reviewed interim history and current functioning. Reviewed vital signs,~Labs/ Radiology~and current medications noted below. Continue current treatment with the changes noted in the dictated addendum note Assessment: Vital Signs/I&O: Vital Signs Date Time Temp Pulse Resp B/P (MAP) Pulse Ox O2 Delivery O2 Flow Rate FiO2 05/23/19 20:34 94 Room Air 05/23/19 19:23 96 105/67 05/23/19 16:15 99.2 18 I & O 05/22/19 05/22/19 05/23/19 14:59 22:59 06:59 Intake Total 840 ml 340 ml Balance 840 ml 340 ml Current Medications: Meds: Current Medications Medications (Trade) Dose Ordered Sig/Andie Route PRN Reason Start Time Stop Time Status Last Admin Dose Admin Trazodone HCl (Desyrel) 50 mg QHS PO 05/23/19 21:00 05/23/19 19:24 I have reviewed the current psychotropics carefully including drug interactions. Risk benefit ratio favors no change other than as noted in my dictated progress note. Diagnosis: Problems: (1) Alcohol-induced persisting dementia (2) Anxiety disorder (3) Dementia associated with alcoholism with behavioral disturbance (4) Major neurocognitive disorder, due to vascular disease, with behavioral disturbance, mild (5) Mixed Alzheimer's and vascular dementia with behavior disturbances (6) Impulse control disorder AKI COX MD May 23, 2019 22:39
--- NOTE | 2019-05-23 23:06 | PN ---
DATE: 05/22/2019 PSYCHIATRIC PROGRESS NOTE This is a late entry 05/22/2019, covers the elements not covered in my initial note. SUBJECTIVE: I met with the patient in the evening. The patient slept 8-1/4 hours previous night. He remains confused, not aggressive. REVIEW OF SYSTEMS: No CV, , pulmonary, eye, ENT system symptoms on review. He does have word finding problems and tremors. Reliability poor. MENTAL STATUS EXAM: Oriented to himself. Insight, judgment, recent and remote memory, attention, concentration, fund of knowledge poor, consistent with his diagnosis mentioned in my initial note. PLAN: No change from initial note. MAN Pastor COX MD DR: RHYS/alisa JOB#: [id number] / [id number]
[2019-05-24] MEDS: ALBUTEROL SULFATE 2.5 MG/3 ML NEBU. NEB SCH ×4 (05:12→20:01)
[2019-05-24 05:51] VITALS: BP 97/58
[2019-05-24] MEDS: dilTIAZem HCL 30 MG TABLET PO SCH ×3 (06:00→20:16)
[2019-05-24] MEDS: CIPROFLOXACIN HCL 250 MG TABLET PO SCH ×2 (07:37→20:14)
[2019-05-24] MEDS: ALLOPURINOL 300 MG TABLET. PO SCH (07:38)
[2019-05-24] MEDS: GABAPENTIN 300 MG CAPSULE. PO SCH ×4 (07:38→20:16)
[2019-05-24] MEDS: DONEPEZIL HCL 10 MG TABLET PO SCH (07:38)
[2019-05-24] MEDS: LACTOBACILLUS RHAMNOSUS GG 1 CAPSULE. PO SCH ×2 (07:38→20:14)
[2019-05-24] MEDS: PARoxetine 20 MG TABLET PO SCH (07:38)
[2019-05-24] MEDS: QUEtiapine 25 MG TABLET. PO SCH ×2 (07:38→17:27)
[2019-05-24] MEDS: APIXABAN 5 MG TABLET. PO SCH ×2 (07:39→20:14)
[2019-05-24] MEDS: NICOTINE 14MG PATCH. TD SCH (07:39)
[2019-05-24] MEDS: FLUTICASONE 50MCG/NASAL SPRAY 16GM BOTTLE. NS SCH (07:39)
[2019-05-24] MEDS: rOPINIRole 0.5 MG TABLET. PO SCH ×3 (07:39→20:16)
[2019-05-24] MEDS: CETIRIZINE HCL 10 MG TABLET PO SCH (07:39)
[2019-05-24] MEDS: BUDESONIDE 0.5 MG/2 ML NEBU NEB SCH ×2 (09:44→20:01)
[2019-05-24 16:19] VITALS: BP 129/69
[2019-05-24] MEDS: DIVALPROEX ER 500 MG TAB.ER.24H PO SCH (20:14)
[2019-05-24] MEDS: traZODone 50 MG TABLET. PO SCH (20:14)
[2019-05-24] MEDS: ATORVASTATIN CALCIUM 20 MG TABLET PO SCH (20:14)
--- NOTE | 2019-05-24 20:27 | PN ---
DATE: 05/23/2019 PSYCHIATRIC PROGRESS NOTE. This late entry of 05/23/2019 covers the elements not covered in my initial note. SUBJECTIVE: I met with the patient in the evening. The patient slept 4-1/4 hours previous night. He has been sleeping poorly and we will add trazodone 50 mg at bedtime, may repeat x 1 p.r.n. insomnia. He remains on Cipro for his UTI. Valproic acid level 64, therapeutic. He got agitated in the late morning, received Zyprexa p.r.n. at 10:41 a.m. He was delusional, confused, looking for his wallet and his keys. REVIEW OF SYSTEMS: No CV, , pulmonary, eye, ENT system symptoms on review. Reliability poor. MENTAL STATUS EXAM: Oriented to himself. Insight, judgment, recent and remote memory, attention, concentration, fund of knowledge poor, consistent with his diagnosis mentioned in my initial note. PLAN: No change from initial note. Continue Depakote at current dosage, level is therapeutic. MAN Pastor COX MD DR: RHYS/alisa JOB#: [id number] / [id number]
--- NOTE | 2019-05-24 22:13 | PDOC ---
Exam Note: Samm Note: Please also refer to the separate dictated note~for this date of service dictated separately.~Patient seen individually. Discussed the patient with Nursing staff reviewed the chart.~Reviewed interim history and current functioning. Reviewed vital signs,~Labs/ Radiology~and current medications noted below. Continue current treatment with the changes noted in the dictated addendum note Assessment: Vital Signs/I&O: Vital Signs Date Time Temp Pulse Resp B/P (MAP) Pulse Ox O2 Delivery O2 Flow Rate FiO2 05/24/19 20:16 75 129/69 05/24/19 20:05 95 Room Air 05/24/19 16:19 98.1 16 I & O 05/23/19 05/23/19 05/24/19 15:00 23:00 07:00 Intake Total 480 ml 240 ml 240 ml Balance 480 ml 240 ml 240 ml Current Medications: I have reviewed the current psychotropics carefully including drug interactions. Risk benefit ratio favors no change other than as noted in my dictated progress note. 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
[2019-05-25 04:49] VITALS: BP 89/62
[2019-05-25] MEDS: BUDESONIDE 0.5 MG/2 ML NEBU NEB SCH ×2 (05:16→20:53)
[2019-05-25] MEDS: ALBUTEROL SULFATE 2.5 MG/3 ML NEBU. NEB SCH ×4 (05:16→20:53)
[2019-05-25] MEDS: dilTIAZem HCL 30 MG TABLET PO SCH ×3 (06:00→21:00)
[2019-05-25] MEDS: APIXABAN 5 MG TABLET. PO SCH ×2 (11:53→20:26)
[2019-05-25] MEDS: rOPINIRole 0.5 MG TABLET. PO SCH ×3 (11:53→20:26)
[2019-05-25] MEDS: CETIRIZINE HCL 10 MG TABLET PO SCH (11:53)
[2019-05-25] MEDS: CIPROFLOXACIN HCL 250 MG TABLET PO SCH ×2 (11:53→20:25)
[2019-05-25] MEDS: DONEPEZIL HCL 10 MG TABLET PO SCH (11:54)
[2019-05-25] MEDS: ALLOPURINOL 300 MG TABLET. PO SCH (11:55)
[2019-05-25] MEDS: QUEtiapine 25 MG TABLET. PO SCH ×2 (11:55→17:29)
[2019-05-25] MEDS: LACTOBACILLUS RHAMNOSUS GG 1 CAPSULE. PO SCH ×2 (11:55→20:26)
[2019-05-25] MEDS: NICOTINE 14MG PATCH. TD SCH (11:56)
[2019-05-25] MEDS: FLUTICASONE 50MCG/NASAL SPRAY 16GM BOTTLE. NS SCH (11:56)
[2019-05-25] MEDS: SERTRALINE 50 MG TABLET. PO SCH (11:58)
[2019-05-25] MEDS: PARoxetine 20 MG TABLET PO SCH (11:58)
[2019-05-25] MEDS: GABAPENTIN 300 MG CAPSULE. PO SCH ×4 (11:59→20:25)
[2019-05-25 16:14] VITALS: BP 170/86
[2019-05-25] MEDS: DIVALPROEX ER 500 MG TAB.ER.24H PO SCH (20:25)
[2019-05-25] MEDS: ATORVASTATIN CALCIUM 20 MG TABLET PO SCH (20:25)
[2019-05-25] MEDS: traZODone 50 MG TABLET. PO SCH (20:26)
[2019-05-25 21:00] VITALS: BP 88/60
--- NOTE | 2019-05-25 22:17 | PDOC ---
Exam Note: Samm Note: Please also refer to the separate dictated note~for this date of service dictated separately.~Patient seen individually. Discussed the patient with Nursing staff reviewed the chart.~Reviewed interim history and current functioning. Reviewed vital signs,~Labs/ Radiology~and current medications noted below. Continue current treatment with the changes noted in the dictated addendum note Assessment: Vital Signs/I&O: Vital Signs Date Time Temp Pulse Resp B/P (MAP) Pulse Ox O2 Delivery O2 Flow Rate FiO2 05/25/19 20:56 95 Room Air 05/25/19 16:14 98.0 98 24 170/86 (114) I & O 05/24/19 05/24/19 05/25/19 14:59 22:59 06:59 Intake Total 360 ml 240 ml 120 ml Balance 360 ml 240 ml 120 ml Current Medications: Meds: Current Medications Medications (Trade) Dose Ordered Sig/Andie Route PRN Reason Start Time Stop Time Status Last Admin Dose Admin Paroxetine HCl (Paxil) 30 mg DAILY PO 05/25/19 09:00 05/26/19 23:50 05/25/19 11:58 Sertraline HCl (Zoloft) 50 mg DAILY PO 05/25/19 09:00 05/25/19 11:58 I have reviewed the current psychotropics carefully including drug interactions. Risk benefit ratio favors no change other than as noted in my dictated progress note. 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
[2019-05-25 23:03] VITALS: BP 94/49
[2019-05-26 04:53] VITALS: BP 89/44
[2019-05-26] MEDS: ALBUTEROL SULFATE 2.5 MG/3 ML NEBU. NEB SCH ×4 (06:32→20:43)
[2019-05-26] MEDS: dilTIAZem HCL 30 MG TABLET PO SCH ×2 (07:32→19:59)
[2019-05-26] MEDS: CIPROFLOXACIN HCL 250 MG TABLET PO SCH ×2 (07:56→19:30)
[2019-05-26] MEDS: APIXABAN 5 MG TABLET. PO SCH ×2 (07:56→19:30)
[2019-05-26] MEDS: DONEPEZIL HCL 10 MG TABLET PO SCH (07:56)
[2019-05-26] MEDS: LACTOBACILLUS RHAMNOSUS GG 1 CAPSULE. PO SCH ×2 (07:56→22:15)
[2019-05-26] MEDS: FLUTICASONE 50MCG/NASAL SPRAY 16GM BOTTLE. NS SCH (07:56)
[2019-05-26] MEDS: PARoxetine 20 MG TABLET PO SCH (07:57)
[2019-05-26] MEDS: rOPINIRole 0.5 MG TABLET. PO SCH ×3 (07:57→19:31)
[2019-05-26] MEDS: GABAPENTIN 300 MG CAPSULE. PO SCH ×4 (07:57→19:33)
[2019-05-26] MEDS: CETIRIZINE HCL 10 MG TABLET PO SCH (07:58)
[2019-05-26] MEDS: SERTRALINE 50 MG TABLET. PO SCH (07:58)
[2019-05-26] MEDS: QUEtiapine 25 MG TABLET. PO SCH ×2 (07:58→16:48)
[2019-05-26] MEDS: ALLOPURINOL 300 MG TABLET. PO SCH (07:58)
[2019-05-26] MEDS: NICOTINE 14MG PATCH. TD SCH (07:59)
[2019-05-26] MEDS: BUDESONIDE 0.5 MG/2 ML NEBU NEB SCH ×2 (10:03→20:43)
[2019-05-26 15:34] VITALS: BP 145/77
[2019-05-26] MEDS: ATORVASTATIN CALCIUM 20 MG TABLET PO SCH (19:30)
[2019-05-26] MEDS: traZODone 50 MG TABLET. PO SCH (19:30)
[2019-05-26] MEDS: DIVALPROEX ER 500 MG TAB.ER.24H PO SCH (19:31)
--- NOTE | 2019-05-26 22:17 | PN ---
DATE: 05/24/2019 PSYCHIATRIC PROGRESS NOTE. This is a late entry of 05/24/2019 covers the elements not covered in my initial note. SUBJECTIVE: I met with the patient in the evening. The patient slept 6-3/4 hours previous night. He was up and down all night per nursing report. He did lie down after lunch to take rest, less obsessed and anxious. REVIEW OF SYSTEMS: No CV, , pulmonary, eye, ENT system symptoms on review. Reliability poor. MENTAL STATUS EXAM: Oriented to himself. Insight, judgment, recent and remote memory, attention, concentration, fund of knowledge poor, consistent with his diagnosis. Valproic acid level 64, therapeutic on 05/21/2019. IMPRESSION: Unchanged from initial note. PLAN: The patient is on Paxil 40 mg a day. We will go ahead and taper this down gradually till it is discontinued. Continue rest of his psychotropics and he is also on Zoloft 50 mg a day. Adjust further as clinically indicated. MAN Pastor COX MD DR: RHYS/alisa JOB#: [id number] / [id number]
--- NOTE | 2019-05-26 22:31 | PDOC ---
Exam Note: Samm Note: Please also refer to the separate dictated note~for this date of service dictated separately.~Patient seen individually. Discussed the patient with Nursing staff reviewed the chart.~Reviewed interim history and current functioning. Reviewed vital signs,~Labs/ Radiology~and current medications noted below. Continue current treatment with the changes noted in the dictated addendum note Assessment: Vital Signs/I&O: Vital Signs Date Time Temp Pulse Resp B/P (MAP) Pulse Ox O2 Delivery O2 Flow Rate FiO2 05/26/19 20:47 98 Room Air 05/26/19 19:59 77 124/85 05/26/19 15:34 98.2 16 I & O 05/25/19 05/25/19 05/26/19 14:59 22:59 06:59 Intake Total 240 ml 480 ml 120 ml Balance 240 ml 480 ml 120 ml Current Medications: I have reviewed the current psychotropics carefully including drug interactions. Risk benefit ratio favors no change other than as noted in my dictated progress note. 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
--- NOTE | 2019-05-27 00:36 | PN ---
DATE: 05/25/2019 PSYCHIATRIC PROGRESS NOTE This late entry 05/25/2019 covers elements not covered in my initial note. I met with the patient in the evening. The patient was also staffed at a treatment team meeting with the entire team. We tried to contact the patient's sister, Vangie to attend the conference as arranged, but were unable to contact her. He slept 7 hours previous night. Appetite 75-100%. He is on Cipro for his UTI. Later, Vangie did attend the treatment team meeting. We reviewed the patient's history and progress. He had been living for 10 years in independent living and then most recently has been at [facility] before he was sent to the [facility] from where he was referred to us. He has been calm, confused, disorganized and may need a new placement. REVIEW OF SYSTEMS: No CV, , pulmonary, eye, ENT system symptoms on review. Reliability poor. MENTAL STATUS EXAM: Oriented to himself. Insight, judgment, recent and remote memory, attention, concentration, fund of knowledge poor, consistent with his diagnosis. IMPRESSION: Unchanged from initial note. PLAN: No change from initial note. MAN Pastor COX MD DR: RHYS/alisa JOB#: [id number] / [id number]
[2019-05-27] MEDS: BUDESONIDE 0.5 MG/2 ML NEBU NEB SCH ×2 (04:59→20:08)
[2019-05-27] MEDS: ALBUTEROL SULFATE 2.5 MG/3 ML NEBU. NEB SCH ×4 (04:59→20:08)
[2019-05-27 05:26] VITALS: BP 98/62
[2019-05-27] MEDS: FLUTICASONE 50MCG/NASAL SPRAY 16GM BOTTLE. NS SCH (08:06)
[2019-05-27] MEDS: DONEPEZIL HCL 10 MG TABLET PO SCH (08:07)
[2019-05-27] MEDS: APIXABAN 5 MG TABLET. PO SCH ×2 (08:08→19:21)
[2019-05-27] MEDS: LACTOBACILLUS RHAMNOSUS GG 1 CAPSULE. PO SCH ×2 (08:08→19:21)
[2019-05-27] MEDS: CIPROFLOXACIN HCL 250 MG TABLET PO SCH ×2 (08:08→19:21)
[2019-05-27] MEDS: rOPINIRole 0.5 MG TABLET. PO SCH ×3 (08:09→19:20)
[2019-05-27] MEDS: PARoxetine 20 MG TABLET PO SCH (08:09)
[2019-05-27] MEDS: QUEtiapine 25 MG TABLET. PO SCH ×2 (08:10→17:00)
[2019-05-27] MEDS: ALLOPURINOL 300 MG TABLET. PO SCH (08:10)
[2019-05-27] MEDS: CETIRIZINE HCL 10 MG TABLET PO SCH (08:10)
[2019-05-27] MEDS: NICOTINE 14MG PATCH. TD SCH (08:10)
[2019-05-27] MEDS: SERTRALINE 50 MG TABLET. PO SCH (08:10)
[2019-05-27] MEDS: GABAPENTIN 300 MG CAPSULE. PO SCH ×4 (08:12→19:21)
[2019-05-27] MEDS: dilTIAZem HCL 30 MG TABLET PO SCH ×2 (09:00→20:16)
[2019-05-27 16:18] VITALS: BP 133/75
[2019-05-27] MEDS: ATORVASTATIN CALCIUM 20 MG TABLET PO SCH (19:21)
[2019-05-27] MEDS: DIVALPROEX ER 500 MG TAB.ER.24H PO SCH (19:22)
[2019-05-27] MEDS: traZODone 50 MG TABLET. PO SCH (19:22)
[2019-05-27 19:48] VITALS: BP 113/74
--- NOTE | 2019-05-27 22:58 | PDOC ---
Exam Note: Samm Note: Please also refer to the separate dictated note~for this date of service dictated separately.~Patient seen individually. Discussed the patient with Nursing staff reviewed the chart.~Reviewed interim history and current functioning. Reviewed vital signs,~Labs/ Radiology~and current medications noted below. Continue current treatment with the changes noted in the dictated addendum note Assessment: Vital Signs/I&O: Vital Signs Date Time Temp Pulse Resp B/P (MAP) Pulse Ox O2 Delivery O2 Flow Rate FiO2 05/27/19 20:16 69 113/74 05/27/19 20:15 95 Room Air 05/27/19 19:48 97.3 21 I & O 05/26/19 05/26/19 05/27/19 15:00 23:00 07:00 Intake Total 960 ml 480 ml Balance 960 ml 480 ml Current Medications: Meds: Current Medications Medications (Trade) Dose Ordered Sig/Andie Route PRN Reason Start Time Stop Time Status Last Admin Dose Admin Paroxetine HCl (Paxil) 20 mg DAILY PO 05/27/19 09:00 05/28/19 23:50 05/27/19 08:09 I have reviewed the current psychotropics carefully including drug interactions. Risk benefit ratio favors no change other than as noted in my dictated progress note. 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
[2019-05-28] MEDS: ALBUTEROL SULFATE 2.5 MG/3 ML NEBU. NEB SCH ×4 (05:22→20:18)
[2019-05-28 05:42] VITALS: BP 94/63
[2019-05-28] MEDS: FLUTICASONE 50MCG/NASAL SPRAY 16GM BOTTLE. NS SCH (08:06)
[2019-05-28] MEDS: DONEPEZIL HCL 10 MG TABLET PO SCH (08:06)
[2019-05-28] MEDS: LACTOBACILLUS RHAMNOSUS GG 1 CAPSULE. PO SCH ×2 (08:07→19:14)
[2019-05-28] MEDS: dilTIAZem HCL 30 MG TABLET PO SCH ×2 (08:07→19:16)
[2019-05-28] MEDS: CIPROFLOXACIN HCL 250 MG TABLET PO SCH (08:07)
[2019-05-28] MEDS: rOPINIRole 0.5 MG TABLET. PO SCH ×3 (08:07→19:16)
[2019-05-28] MEDS: PARoxetine 20 MG TABLET PO SCH (08:07)
[2019-05-28] MEDS: APIXABAN 5 MG TABLET. PO SCH ×2 (08:07→19:15)
[2019-05-28] MEDS: NICOTINE 14MG PATCH. TD SCH (08:08)
[2019-05-28] MEDS: ALLOPURINOL 300 MG TABLET. PO SCH (08:08)
[2019-05-28] MEDS: QUEtiapine 25 MG TABLET. PO SCH ×2 (08:08→17:00)
[2019-05-28] MEDS: SERTRALINE 50 MG TABLET. PO SCH (08:08)
[2019-05-28] MEDS: CETIRIZINE HCL 10 MG TABLET PO SCH (08:08)
[2019-05-28] MEDS: GABAPENTIN 300 MG CAPSULE. PO SCH ×4 (08:09→19:14)
[2019-05-28] MEDS: BUDESONIDE 0.5 MG/2 ML NEBU NEB SCH ×2 (11:41→20:18)
[2019-05-28 16:59] VITALS: BP 144/81
[2019-05-28] MEDS: DIVALPROEX ER 500 MG TAB.ER.24H PO SCH (19:14)
[2019-05-28] MEDS: traZODone 50 MG TABLET. PO SCH (19:15)
[2019-05-28] MEDS: ATORVASTATIN CALCIUM 20 MG TABLET PO SCH (19:15)
--- NOTE | 2019-05-28 22:06 | PDOC ---
Exam Note: Samm Note: Please also refer to the separate dictated note~for this date of service dictated separately.~Patient seen individually. Discussed the patient with Nursing staff reviewed the chart.~Reviewed interim history and current functioning. Reviewed vital signs,~Labs/ Radiology~and current medications noted below. Continue current treatment with the changes noted in the dictated addendum note Assessment: Vital Signs/I&O: Vital Signs Date Time Temp Pulse Resp B/P (MAP) Pulse Ox O2 Delivery O2 Flow Rate FiO2 05/28/19 20:19 95 Room Air 05/28/19 19:16 61 144/81 05/28/19 16:59 98.1 18 I & O 05/27/19 05/27/19 05/28/19 15:00 23:00 07:00 Intake Total 480 ml 240 ml Balance 480 ml 240 ml Current Medications: I have reviewed the current psychotropics carefully including drug interactions. Risk benefit ratio favors no change other than as noted in my dictated progress note. 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
--- NOTE | 2019-05-28 23:32 | PN ---
DATE: 05/26/2019 PSYCHIATRIC PROGRESS NOTE This late entry 05/26/2019 covers elements not covered in my initial note. SUBJECTIVE: I met with the patient in the evening. The patient slept 6-3/4 hours previous night, then off and on during the day on 05/26/2019. Blood pressure was somewhat low at 89/44. Dr. Barros has reduced the Cardizem from 3 times a day down to twice a day. He has been sleepy during the day. He continues to have some mouth movements and noises unclear specifically what it is. We will defer to Dr. Medrano, Neurology. REVIEW OF SYSTEMS: No CV, , pulmonary, eye, ENT system symptoms on review. Reliability poor. MENTAL STATUS EXAMINATION: Oriented to himself. Insight, judgment, recent and remote memory, attention, concentration, fund of knowledge poor, consistent with his diagnosis mentioned in my initial note. PLAN: No change from initial note. MAN Pastor COX MD DR: RHYS/alisa JOB#: [id number] / [id number]
--- NOTE | 2019-05-28 23:54 | PN ---
DATE: 05/27/2019 PSYCHIATRIC PROGRESS NOTE This late entry 05/27/2019 covers elements not covered in my initial note. SUBJECTIVE: I met with the patient in the evening of 05/27/2019. The patient slept 6-1/4 hours previous night. He has been calm, compliant, takes medications whole, generally had a better day on 05/27/2019. REVIEW OF SYSTEMS: Ambulates ad torito. No CV, , pulmonary, eye, ENT system symptoms on review. Reliability poor. MENTAL STATUS EXAM: Oriented to himself. Insight, judgment, recent and remote memory, attention, concentration, fund of knowledge poor, consistent with his diagnosis. IMPRESSION: Major neurocognitive disorder, multifactorial secondary to alcohol, Alzheimer, vascular with delusion, depression, behavioral disturbance; anxiety disorder, unspecified; impulse control disorder, unspecified. Rest unchanged. PLAN: Valproic acid level therapeutic at 64, continue Depakote ER 1000 mg at bedtime along with Aricept, Neurontin, melatonin. Paxil is being tapered to stop on 05/30/2019. Continue Seroquel, Zyprexa p.r.n., trazodone and Zoloft 50 mg a day. AKI COX MD DR: RHYS/alisa JOB#: [id number] / [id number]
[2019-05-29] MEDS: ALBUTEROL SULFATE 2.5 MG/3 ML NEBU. NEB SCH ×4 (05:09→20:13)
[2019-05-29 05:57] VITALS: BP 106/62
[2019-05-29] MEDS: FLUTICASONE 50MCG/NASAL SPRAY 16GM BOTTLE. NS SCH (08:15)
[2019-05-29] MEDS: DONEPEZIL HCL 10 MG TABLET PO SCH (08:15)
[2019-05-29] MEDS: LACTOBACILLUS RHAMNOSUS GG 1 CAPSULE. PO SCH ×2 (08:16→20:02)
[2019-05-29] MEDS: APIXABAN 5 MG TABLET. PO SCH ×2 (08:16→20:02)
[2019-05-29] MEDS: rOPINIRole 0.5 MG TABLET. PO SCH ×3 (08:17→21:40)
[2019-05-29] MEDS: QUEtiapine 25 MG TABLET. PO SCH ×2 (08:17→17:14)
[2019-05-29] MEDS: NICOTINE 14MG PATCH. TD SCH (08:18)
[2019-05-29] MEDS: CETIRIZINE HCL 10 MG TABLET PO SCH (08:18)
[2019-05-29] MEDS: ALLOPURINOL 300 MG TABLET. PO SCH (08:18)
[2019-05-29] MEDS: SERTRALINE 50 MG TABLET. PO SCH (08:18)
[2019-05-29] MEDS: dilTIAZem HCL 30 MG TABLET PO SCH ×3 (08:19→21:41)
[2019-05-29] MEDS: PARoxetine 10 MG TABLET PO SCH (08:20)
[2019-05-29] MEDS: GABAPENTIN 300 MG CAPSULE. PO SCH ×4 (08:20→21:40)
[2019-05-29] MEDS: BUDESONIDE 0.5 MG/2 ML NEBU NEB SCH ×2 (09:31→20:13)
[2019-05-29 10:24] LABS: ALBUMIN 2.7 g/dL (3.4-5.0); ALBUMIN/GLOBULIN RATIO 0.9 (1.0-1.7); CALCIUM 8.8 mg/dL (8.5-10.1); CREATININE 0.8 mg/dL (0.7-1.3); GFR 95.8; POTASSIUM 4.1 mmol/L (3.5-5.1); TOTAL BILIRUBIN 0.1 mg/dL (0.2-1.0); TOTAL PROTEIN 5.8 g/dL (6.4-8.2)
[2019-05-29 10:31] LABS: BASO % 0 % (0-3); EOS # 0.1 x10^3/uL (0.0-0.7); EOS % 1 % (0-3); HEMATOCRIT 37.3 % (39.0-53.0); HEMOGLOBIN 12.2 g/dL (13.0-17.5); LYMPH # 1.4 x10^3/uL (1.0-4.8); LYMPH % 20 % (24-48); MEAN CORPUSCULAR HEMOGLOBIN 32 pg (25-35); MEAN CORPUSCULAR HGB CONC 33 g/dL (31-37); MEAN CORPUSCULAR VOLUME 97 fL (79-100); MONO # 0.5 x10^3/uL (0.0-1.1); MONO % 7 % (0-9); NEUT # 4.8 x10^3uL (1.8-7.7); NEUT % 71 % (31-73); PLATELET COUNT 195 x10^3/uL (140-400); RED BLOOD COUNT 3.83 x10^6/uL (4.30-5.70); RED CELL DISTRIBUTION WIDTH 15.1 % (11.5-14.5); WHITE BLOOD COUNT 6.7 x10^3/uL (4.0-11.0)
[2019-05-29 12:07] LABS: % BANDS 1 % (0-9); % LYMPHS 22 % (24-48); % METAS 3 % (0-0); % MONOS 2 % (0-10); % MYELOS 1 % (0-0); % SEGS 71 % (35-66); PLT ESTIMATE ADEQUATE (ADEQUATE)
[2019-05-29 12:08] LABS: OVALOCYTES OCC; TOXIC GRANULATION PRESENT
[2019-05-29 12:09] LABS: POLYCHROMASIA SLIGHT; TOXIC VACUOLATION PRESENT
--- NOTE | 2019-05-29 13:41 | PN ---
DATE: 05/28/2019 PSYCHIATRIC PROGRESS NOTE This late entry 05/28/2019 covers the elements not covered in my initial note. SUBJECTIVE: I met with the patient in the evening at some length. The patient slept 6-1/4 hours previous night. Overall, per nursing report, the patient remains confused, but had a good day on 05/28/2019. He completed his course of Cipro for his UTI on 05/28/2019. REVIEW OF SYSTEMS: No CV, , pulmonary, eye, ENT system symptoms on review. Reliability poor. MENTAL STATUS EXAM: Oriented to himself. Insight, judgment, recent and remote memory, attention, concentration, fund of knowledge poor, consistent with his diagnosis mentioned in my initial note. PLAN: No change from initial note. Valproic acid level is therapeutic at 64. May need to increase Seroquel further. Paxil is being tapered and he remains on Zoloft 50 mg a day. AKI COX MD DR: RHYS/alisa JOB#: [id number] / [id number]
[2019-05-29 15:35] VITALS: BP 97/60
[2019-05-29] MEDS: traZODone 50 MG TABLET. PO SCH (20:02)
[2019-05-29] MEDS: ATORVASTATIN CALCIUM 20 MG TABLET PO SCH (20:04)
[2019-05-29] MEDS: DIVALPROEX ER 500 MG TAB.ER.24H PO SCH (20:06)
[2019-05-29 21:33] VITALS: BP 115/64
--- NOTE | 2019-05-29 22:26 | PDOC ---
Exam Note: Samm Note: Please also refer to the separate dictated note~for this date of service dictated separately.~Patient seen individually. Discussed the patient with Nursing staff reviewed the chart.~Reviewed interim history and current functioning. Reviewed vital signs,~Labs/ Radiology~and current medications noted below. Continue current treatment with the changes noted in the dictated addendum note Assessment: Vital Signs/I&O: Vital Signs Date Time Temp Pulse Resp B/P (MAP) Pulse Ox O2 Delivery O2 Flow Rate FiO2 05/29/19 21:41 72 115/64 05/29/19 20:16 98 Room Air 05/29/19 15:35 97.1 16 I & O 05/28/19 05/28/19 05/29/19 14:59 22:59 06:59 Intake Total 320 ml 300 ml Balance 320 ml 300 ml Labs: Laboratory Tests Test 05/29/19 09:25 White Blood Count 6.7 x10^3/uL (4.0-11.0) Red Blood Count 3.83 x10^6/uL (4.30-5.70) L Hemoglobin 12.2 g/dL (13.0-17.5) L Hematocrit 37.3 % (39.0-53.0) L Mean Corpuscular Volume 97 fL (79-100) Mean Corpuscular Hemoglobin 32 pg (25-35) Mean Corpuscular Hemoglobin Concent 33 g/dL (31-37) Red Cell Distribution Width 15.1 % (11.5-14.5) H Platelet Count 195 x10^3/uL (140-400) Neutrophils (%) (Auto) 71 % (31-73) Lymphocytes (%) (Auto) 20 % (24-48) L Monocytes (%) (Auto) 7 % (0-9) Eosinophils (%) (Auto) 1 % (0-3) Basophils (%) (Auto) 0 % (0-3) Neutrophils # (Auto) 4.8 x10^3uL (1.8-7.7) Lymphocytes # (Auto) 1.4 x10^3/uL (1.0-4.8) Monocytes # (Auto) 0.5 x10^3/uL (0.0-1.1) Eosinophils # (Auto) 0.1 x10^3/uL (0.0-0.7) Basophils # (Auto) 0.0 x10^3/uL (0.0-0.2) Segmented Neutrophils % 71 % (35-66) H Band Neutrophils % 1 % (0-9) Lymphocytes % 22 % (24-48) L Monocytes % 2 % (0-10) Metamyelocytes % 3 % (0-0) H Myelocytes % 1 % (0-0) H Toxic Granulation Present Toxic Vacuolation Present Platelet Estimate Adequate (ADEQUATE) Polychromasia Slight Ovalocytes Occ Sodium Level 142 mmol/L (136-145) Potassium Level 4.1 mmol/L (3.5-5.1) Chloride Level 106 mmol/L (98-107) Carbon Dioxide Level 31 mmol/L (21-32) Anion Gap 5 (6-14) L Blood Urea Nitrogen 14 mg/dL (8-26) Creatinine 0.8 mg/dL (0.7-1.3) Estimated GFR (Cockcroft-Gault) 95.8 BUN/Creatinine Ratio 18 (6-20) Glucose Level 125 mg/dL (70-99) H Calcium Level 8.8 mg/dL (8.5-10.1) Total Bilirubin 0.1 mg/dL (0.2-1.0) L Aspartate Amino Transferase (AST) 13 U/L (15-37) L Alanine Aminotransferase (ALT) 17 U/L (16-63) Alkaline Phosphatase 82 U/L (46-116) Total Protein 5.8 g/dL (6.4-8.2) L Albumin 2.7 g/dL (3.4-5.0) L Albumin/Globulin Ratio 0.9 (1.0-1.7) L Current Medications: Meds: Current Medications Medications (Trade) Dose Ordered Sig/Andie Route PRN Reason Start Time Stop Time Status Last Admin Dose Admin Paroxetine HCl (Paxil) 10 mg DAILY PO 05/29/19 09:00 05/30/19 23:50 05/29/19 08:20 I have reviewed the current psychotropics carefully including drug interactions. Risk benefit ratio favors no change other than as noted in my dictated progress note. 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
[2019-05-30 04:15] VITALS: BP 113/73
[2019-05-30] MEDS: BUDESONIDE 0.5 MG/2 ML NEBU NEB SCH ×2 (04:48→20:06)
[2019-05-30] MEDS: ALBUTEROL SULFATE 2.5 MG/3 ML NEBU. NEB SCH ×4 (04:48→20:07)
[2019-05-30] MEDS: LACTOBACILLUS RHAMNOSUS GG 1 CAPSULE. PO SCH ×2 (10:44→19:21)
[2019-05-30] MEDS: ALLOPURINOL 300 MG TABLET. PO SCH (10:44)
[2019-05-30] MEDS: PARoxetine 10 MG TABLET PO SCH (10:44)
[2019-05-30] MEDS: rOPINIRole 0.5 MG TABLET. PO SCH ×3 (10:44→19:22)
[2019-05-30] MEDS: QUEtiapine 25 MG TABLET. PO SCH ×2 (10:44→17:28)
[2019-05-30] MEDS: SERTRALINE 50 MG TABLET. PO SCH (10:44)
[2019-05-30] MEDS: DONEPEZIL HCL 10 MG TABLET PO SCH (10:45)
[2019-05-30] MEDS: CETIRIZINE HCL 10 MG TABLET PO SCH (10:45)
[2019-05-30] MEDS: NICOTINE 14MG PATCH. TD SCH (10:46)
[2019-05-30] MEDS: APIXABAN 5 MG TABLET. PO SCH ×2 (10:46→19:21)
[2019-05-30] MEDS: FLUTICASONE 50MCG/NASAL SPRAY 16GM BOTTLE. NS SCH (10:47)
[2019-05-30] MEDS: GABAPENTIN 300 MG CAPSULE. PO SCH ×4 (10:47→19:21)
--- NOTE | 2019-05-30 14:30 | PN ---
DATE: 05/29/2019 PSYCHIATRIC PROGRESS NOTE This is a late entry. This note covers elements not covered in my initial note of 05/29/2019. SUBJECTIVE: The patient slept 9 hours previous night. He remains confused, but is doing better, still remains anxious, restless, but redirectable. As I met with him, he was able to tell me that the president is President Zunilda, but felt before him it was Jl, felt the year was 1899 and something. REVIEW OF SYSTEMS: No CV, , pulmonary, eye, ENT system symptoms on review. Reliability poor. MENTAL STATUS EXAM: Oriented to himself. Insight, judgment, recent and remote memory, attention, concentration, fund of knowledge poor, consistent with his diagnosis mentioned in my initial note. PLAN: No change from initial note. Continue Depakote, Aricept, Neurontin, melatonin p.r.n., Paxil is being tapered. He remains on Zoloft in place of this along with Zyprexa p.r.n., Requip for his restless legs and trazodone. Valproic acid level therapeutic at 64. MAN Pastor COX MD DR: RHYS/alisa JOB#: [id number] / [id number]
[2019-05-30 15:47] VITALS: BP 106/69
[2019-05-30] MEDS: dilTIAZem HCL 30 MG TABLET PO SCH (19:20)
[2019-05-30] MEDS: ATORVASTATIN CALCIUM 20 MG TABLET PO SCH (19:21)
[2019-05-30] MEDS: traZODone 50 MG TABLET. PO SCH (19:21)
[2019-05-30] MEDS: DIVALPROEX ER 500 MG TAB.ER.24H PO SCH (19:23)
--- NOTE | 2019-05-30 22:24 | PDOC ---
Exam Note: Samm Note: Please also refer to the separate dictated note~for this date of service dictated separately.~Patient seen individually. Discussed the patient with Nursing staff reviewed the chart.~Reviewed interim history and current functioning. Reviewed vital signs,~Labs/ Radiology~and current medications noted below. Continue current treatment with the changes noted in the dictated addendum note Assessment: Vital Signs/I&O: Vital Signs Date Time Temp Pulse Resp B/P (MAP) Pulse Ox O2 Delivery O2 Flow Rate FiO2 05/30/19 20:10 95 Room Air 05/30/19 19:23 76 106/69 05/30/19 15:47 98.0 20 I & O 05/29/19 05/29/19 05/30/19 15:00 23:00 07:00 Intake Total 960 ml 600 ml Balance 960 ml 600 ml Current Medications: I have reviewed the current psychotropics carefully including drug interactions. Risk benefit ratio favors no change other than as noted in my dictated progress note. Diagnosis: Problems: (1) Alcohol-induced persisting dementia (2) Anxiety disorder (3) Dementia associated with alcoholism with behavioral disturbance (4) Major neurocognitive disorder, due to vascular disease, with behavioral disturbance, mild (5) Mixed Alzheimer's and vascular dementia with behavior disturbances (6) Impulse control disorder (7) Post traumatic stress disorder AKI COX MD May 30, 2019 22:24
[2019-05-31 05:38] VITALS: BP 108/67
[2019-05-31] MEDS: ALBUTEROL SULFATE 2.5 MG/3 ML NEBU. NEB SCH ×4 (05:42→21:24)
[2019-05-31] MEDS: BUDESONIDE 0.5 MG/2 ML NEBU NEB SCH ×2 (05:42→21:24)
[2019-05-31] MEDS: FLUTICASONE 50MCG/NASAL SPRAY 16GM BOTTLE. NS SCH (08:12)
[2019-05-31] MEDS: dilTIAZem HCL 30 MG TABLET PO SCH ×2 (08:13→20:00)
[2019-05-31] MEDS: APIXABAN 5 MG TABLET. PO SCH ×2 (08:13→19:59)
[2019-05-31] MEDS: DONEPEZIL HCL 10 MG TABLET PO SCH (08:13)
[2019-05-31] MEDS: LACTOBACILLUS RHAMNOSUS GG 1 CAPSULE. PO SCH ×2 (08:13→19:59)
[2019-05-31] MEDS: rOPINIRole 0.5 MG TABLET. PO SCH ×3 (08:14→19:59)
[2019-05-31] MEDS: QUEtiapine 25 MG TABLET. PO SCH ×2 (08:14→16:34)
[2019-05-31] MEDS: SERTRALINE 50 MG TABLET. PO SCH (08:14)
[2019-05-31] MEDS: GABAPENTIN 300 MG CAPSULE. PO SCH ×4 (08:14→20:00)
[2019-05-31] MEDS: CETIRIZINE HCL 10 MG TABLET PO SCH (08:15)
[2019-05-31] MEDS: ALLOPURINOL 300 MG TABLET. PO SCH (08:15)
[2019-05-31] MEDS: NICOTINE 14MG PATCH. TD SCH (08:15)
[2019-05-31 11:00] LABS: ALBUMIN 2.8 g/dL (3.4-5.0); ALBUMIN/GLOBULIN RATIO 0.8 (1.0-1.7); CALCIUM 9.2 mg/dL (8.5-10.1); GFR 74.1; POTASSIUM 4.7 mmol/L (3.5-5.1); TOTAL BILIRUBIN 0.1 mg/dL (0.2-1.0); TOTAL PROTEIN 6.1 g/dL (6.4-8.2)
[2019-05-31 11:22] LABS: BASO % 0 % (0-3); EOS # 0.1 x10^3/uL (0.0-0.7); EOS % 1 % (0-3); HEMATOCRIT 39.9 % (39.0-53.0); HEMOGLOBIN 12.9 g/dL (13.0-17.5); LYMPH # 1.8 x10^3/uL (1.0-4.8); LYMPH % 24 % (24-48); MEAN CORPUSCULAR HEMOGLOBIN 32 pg (25-35); MEAN CORPUSCULAR HGB CONC 32 g/dL (31-37); MEAN CORPUSCULAR VOLUME 98 fL (79-100); MONO # 0.7 x10^3/uL (0.0-1.1); MONO % 10 % (0-9); NEUT # 5.1 x10^3uL (1.8-7.7); NEUT % 66 % (31-73); PLATELET COUNT 202 x10^3/uL (140-400); RED BLOOD COUNT 4.08 x10^6/uL (4.30-5.70); WHITE BLOOD COUNT 7.8 x10^3/uL (4.0-11.0)
[2019-05-31 15:37] VITALS: BP 115/72
[2019-05-31] MEDS: traZODone 50 MG TABLET. PO SCH (19:59)
[2019-05-31] MEDS: DIVALPROEX ER 500 MG TAB.ER.24H PO SCH (19:59)
[2019-05-31] MEDS: ATORVASTATIN CALCIUM 20 MG TABLET PO SCH (19:59)
--- NOTE | 2019-05-31 20:48 | PDOC ---
Exam Note: Samm Note: Please also refer to the separate dictated note~for this date of service dictated separately.~Patient seen individually. Discussed the patient with Nursing staff reviewed the chart.~Reviewed interim history and current functioning. Reviewed vital signs,~Labs/ Radiology~and current medications noted below. Continue current treatment with the changes noted in the dictated addendum note Assessment: Vital Signs/I&O: Vital Signs Date Time Temp Pulse Resp B/P (MAP) Pulse Ox O2 Delivery O2 Flow Rate FiO2 05/31/19 20:04 60 115/72 05/31/19 15:37 98.8 16 93 05/31/19 11:16 Room Air I & O 05/30/19 05/30/19 05/31/19 15:00 23:00 07:00 Intake Total 480 ml 360 ml Balance 480 ml 360 ml Labs: Laboratory Tests Test 05/31/19 10:37 White Blood Count 7.8 x10^3/uL (4.0-11.0) Red Blood Count 4.08 x10^6/uL (4.30-5.70) L Hemoglobin 12.9 g/dL (13.0-17.5) L Hematocrit 39.9 % (39.0-53.0) Mean Corpuscular Volume 98 fL (79-100) Mean Corpuscular Hemoglobin 32 pg (25-35) Mean Corpuscular Hemoglobin Concent 32 g/dL (31-37) Red Cell Distribution Width 15.0 % (11.5-14.5) H Platelet Count 202 x10^3/uL (140-400) Neutrophils (%) (Auto) 66 % (31-73) Lymphocytes (%) (Auto) 24 % (24-48) Monocytes (%) (Auto) 10 % (0-9) H Eosinophils (%) (Auto) 1 % (0-3) Basophils (%) (Auto) 0 % (0-3) Neutrophils # (Auto) 5.1 x10^3uL (1.8-7.7) Lymphocytes # (Auto) 1.8 x10^3/uL (1.0-4.8) Monocytes # (Auto) 0.7 x10^3/uL (0.0-1.1) Eosinophils # (Auto) 0.1 x10^3/uL (0.0-0.7) Basophils # (Auto) 0.0 x10^3/uL (0.0-0.2) Sodium Level 148 mmol/L (136-145) H Potassium Level 4.7 mmol/L (3.5-5.1) Chloride Level 108 mmol/L (98-107) H Carbon Dioxide Level 33 mmol/L (21-32) H Anion Gap 7 (6-14) Blood Urea Nitrogen 14 mg/dL (8-26) Creatinine 1.0 mg/dL (0.7-1.3) Estimated GFR (Cockcroft-Gault) 74.1 BUN/Creatinine Ratio 14 (6-20) Glucose Level 106 mg/dL (70-99) H Calcium Level 9.2 mg/dL (8.5-10.1) Total Bilirubin 0.1 mg/dL (0.2-1.0) L Aspartate Amino Transferase (AST) 12 U/L (15-37) L Alanine Aminotransferase (ALT) 16 U/L (16-63) Alkaline Phosphatase 87 U/L (46-116) Total Protein 6.1 g/dL (6.4-8.2) L Albumin 2.8 g/dL (3.4-5.0) L Albumin/Globulin Ratio 0.8 (1.0-1.7) L Current Medications: I have reviewed the current psychotropics carefully including drug interactions. Risk benefit ratio favors no change other than as noted in my dictated progress note. Diagnosis: Problems: (1) Alcohol-induced persisting dementia (2) Anxiety disorder (3) Dementia associated with alcoholism with behavioral disturbance (4) Major neurocognitive disorder, due to vascular disease, with behavioral disturbance, mild (5) Mixed Alzheimer's and vascular dementia with behavior disturbances (6) Impulse control disorder (7) Post traumatic stress disorder AKI COX MD May 31, 2019 20:48
--- NOTE | 2019-05-31 23:01 | PN ---
DATE: 05/30/2019 PSYCHIATRIC PROGRESS NOTE This late entry 05/30/2019 covers elements not covered in my initial note. SUBJECTIVE: I met with the patient in the evening of 05/30/2019. The patient slept 7-1/4 hours previous night. Overall, he remains confused, but calmer, cooperative with medications, somewhat drowsy. REVIEW OF SYSTEMS: No CV, , pulmonary, eye, ENT system symptoms on review. Reliability poor. MENTAL STATUS EXAM: Oriented to himself. Insight, judgment, recent and remote memory, attention, concentration, fund of knowledge poor, consistent with his diagnosis mentioned in my initial note. PLAN: No change from initial note. MAN Pastor COX MD DR: RHYS/alisa JOB#: [id number] / [id number]
[2019-06-01] MEDS: ALBUTEROL SULFATE 2.5 MG/3 ML NEBU. NEB SCH ×4 (05:24→19:30)
[2019-06-01 06:05] VITALS: BP 102/65
[2019-06-01] MEDS: BUDESONIDE 0.5 MG/2 ML NEBU NEB SCH ×2 (08:00→19:30)
[2019-06-01] MEDS: ALLOPURINOL 300 MG TABLET. PO SCH (08:26)
[2019-06-01] MEDS: CETIRIZINE HCL 10 MG TABLET PO SCH (08:26)
[2019-06-01] MEDS: APIXABAN 5 MG TABLET. PO SCH ×2 (08:26→19:45)
[2019-06-01] MEDS: LACTOBACILLUS RHAMNOSUS GG 1 CAPSULE. PO SCH ×2 (08:26→19:45)
[2019-06-01] MEDS: dilTIAZem HCL 30 MG TABLET PO SCH ×2 (08:26→19:44)
[2019-06-01] MEDS: rOPINIRole 0.5 MG TABLET. PO SCH ×3 (08:26→19:45)
[2019-06-01] MEDS: SERTRALINE 50 MG TABLET. PO SCH (08:26)
[2019-06-01] MEDS: DONEPEZIL HCL 10 MG TABLET PO SCH (08:26)
[2019-06-01] MEDS: QUEtiapine 25 MG TABLET. PO SCH ×2 (08:30→16:51)
[2019-06-01] MEDS: GABAPENTIN 300 MG CAPSULE. PO SCH ×4 (08:30→19:45)
[2019-06-01] MEDS: FLUTICASONE 50MCG/NASAL SPRAY 16GM BOTTLE. NS SCH (08:30)
[2019-06-01] MEDS: NICOTINE 14MG PATCH. TD SCH (08:31)
[2019-06-01 16:02] VITALS: BP 112/78
[2019-06-01] MEDS: ATORVASTATIN CALCIUM 20 MG TABLET PO SCH (19:44)
[2019-06-01] MEDS: DIVALPROEX ER 500 MG TAB.ER.24H PO SCH (19:44)
[2019-06-01] MEDS: traZODone 50 MG TABLET. PO SCH (19:45)
[2019-06-01 20:21] VITALS: BP 120/75
--- NOTE | 2019-06-01 22:19 | PDOC ---
Exam Note: Samm Note: Please also refer to the separate dictated note~for this date of service dictated separately.~Patient seen individually. Discussed the patient with Nursing staff reviewed the chart.~Reviewed interim history and current functioning. Reviewed vital signs,~Labs/ Radiology~and current medications noted below. Continue current treatment with the changes noted in the dictated addendum note Assessment: Vital Signs/I&O: Vital Signs Date Time Temp Pulse Resp B/P (MAP) Pulse Ox O2 Delivery O2 Flow Rate FiO2 06/01/19 20:21 98.7 86 18 120/75 (90) 94 Room Air I & O 05/31/19 05/31/19 06/01/19 15:00 23:00 07:00 Intake Total 720 ml 240 ml 120 ml Balance 720 ml 240 ml 120 ml Current Medications: I have reviewed the current psychotropics carefully including drug interactions. Risk benefit ratio favors no change other than as noted in my dictated progress note. Diagnosis: Problems: (1) Alcohol-induced persisting dementia (2) Anxiety disorder (3) Dementia associated with alcoholism with behavioral disturbance (4) Major neurocognitive disorder, due to vascular disease, with behavioral disturbance, mild (5) Mixed Alzheimer's and vascular dementia with behavior disturbances (6) Impulse control disorder AKI COX MD Jun 01, 2019 22:19
[2019-06-02] MEDS: ALBUTEROL SULFATE 2.5 MG/3 ML NEBU. NEB SCH ×4 (05:16→20:07)
[2019-06-02 05:52] VITALS: BP 106/67
[2019-06-02] MEDS: QUEtiapine 25 MG TABLET. PO SCH ×2 (07:43→16:15)
[2019-06-02] MEDS: rOPINIRole 0.5 MG TABLET. PO SCH ×3 (07:47→19:36)
[2019-06-02] MEDS: APIXABAN 5 MG TABLET. PO SCH ×2 (07:47→19:37)
[2019-06-02] MEDS: SERTRALINE 50 MG TABLET. PO SCH (07:47)
[2019-06-02] MEDS: LACTOBACILLUS RHAMNOSUS GG 1 CAPSULE. PO SCH ×2 (07:47→19:37)
[2019-06-02] MEDS: CETIRIZINE HCL 10 MG TABLET PO SCH (07:48)
[2019-06-02] MEDS: NICOTINE 14MG PATCH. TD SCH (07:48)
[2019-06-02] MEDS: BUDESONIDE 0.5 MG/2 ML NEBU NEB SCH ×2 (08:00→20:07)
[2019-06-02 08:12] VITALS: BP 113/73
[2019-06-02] MEDS: ALLOPURINOL 300 MG TABLET. PO SCH (08:14)
[2019-06-02] MEDS: dilTIAZem HCL 30 MG TABLET PO SCH ×2 (08:15→21:53)
[2019-06-02] MEDS: DONEPEZIL HCL 10 MG TABLET PO SCH (08:15)
[2019-06-02] MEDS: FLUTICASONE 50MCG/NASAL SPRAY 16GM BOTTLE. NS SCH (08:15)
[2019-06-02] MEDS: GABAPENTIN 300 MG CAPSULE. PO SCH ×4 (08:16→19:37)
[2019-06-02 15:49] VITALS: BP 114/59
[2019-06-02 19:35] VITALS: BP 99/65
[2019-06-02] MEDS: traZODone 50 MG TABLET. PO SCH (19:37)
[2019-06-02] MEDS: ATORVASTATIN CALCIUM 20 MG TABLET PO SCH (19:37)
[2019-06-02] MEDS: DIVALPROEX ER 500 MG TAB.ER.24H PO SCH (19:37)
--- NOTE | 2019-06-02 21:02 | PN ---
DATE: 05/31/2019 PSYCHIATRIC PROGRESS NOTE This late entry 05/31/2019 covers elements not covered in my initial note. SUBJECTIVE: I met with the patient in the evening of 05/31/2019. The patient slept 7-1/2 hours previous night. He was anxious, restless in the morning, received Zyprexa p.r.n., yelling when the staff came to draw his labs in the morning, believed people were going to kill him, paranoid. Did better after the Zyprexa. In the evening, he was much calmer, thanking the staff for helping him. He is being assessed for his placement and was cooperative with this. REVIEW OF SYSTEMS: No CV, , pulmonary, eye, ENT system symptoms on review. Reliability poor. MENTAL STATUS EXAM: Oriented to himself. Insight, judgment, recent and remote memory, attention, concentration, fund of knowledge poor, consistent with his diagnosis mentioned in my initial note. PLAN: No change from initial note. MAN Pastor COX MD DR: RHYS/alisa JOB#: [id number] / [id number]
[2019-06-02 21:53] VITALS: BP 118/72
--- NOTE | 2019-06-02 22:08 | PDOC ---
Exam Note: Samm Note: Please also refer to the separate dictated note~for this date of service dictated separately.~Patient seen individually. Discussed the patient with Nursing staff reviewed the chart.~Reviewed interim history and current functioning. Reviewed vital signs,~Labs/ Radiology~and current medications noted below. Continue current treatment with the changes noted in the dictated addendum note Assessment: Vital Signs/I&O: Vital Signs Date Time Temp Pulse Resp B/P (MAP) Pulse Ox O2 Delivery O2 Flow Rate FiO2 06/02/19 21:53 72 118/72 06/02/19 21:53 18 92 Room Air 06/02/19 19:35 97.3 I & O 06/01/19 06/01/19 06/02/19 14:59 22:59 06:59 Intake Total 720 ml 480 ml Balance 720 ml 480 ml Current Medications: I have reviewed the current psychotropics carefully including drug interactions. Risk benefit ratio favors no change other than as noted in my dictated progress note. Diagnosis: Problems: (1) Alcohol-induced persisting dementia (2) Anxiety disorder (3) Dementia associated with alcoholism with behavioral disturbance (4) Major neurocognitive disorder, due to vascular disease, with behavioral disturbance, mild (5) Mixed Alzheimer's and vascular dementia with behavior disturbances (6) Impulse control disorder AKI COX MD Jun 02, 2019 22:08
--- NOTE | 2019-06-02 23:02 | PN ---
DATE: 06/01/2019 This late entry, 06/01/2019, covers elements not covered in my initial note. SUBJECTIVE: I met with the patient in the evening and staffed at a treatment team meeting with the entire team in the morning. Appetite 75-100%, sleeping 8 hours average. He is more cooperative, still wanders around the unit, but redirects. REVIEW OF SYSTEMS: No CV, , pulmonary, eye, ENT system symptoms on review. Reliability poor. MENTAL STATUS EXAM: Oriented to himself. Insight, judgment, recent and remote memory, attention, concentration, fund of knowledge poor, consistent with his diagnosis mentioned in my initial note. PLAN: No change from initial note. MAN Pastor COX MD DR: RHYS/alisa JOB#: [id number] / [id number]
[2019-06-03] MEDS: ALBUTEROL SULFATE 2.5 MG/3 ML NEBU. NEB SCH ×4 (05:20→20:05)
[2019-06-03 06:20] VITALS: BP 111/72
[2019-06-03] MEDS: DONEPEZIL HCL 10 MG TABLET PO SCH (08:15)
[2019-06-03] MEDS: FLUTICASONE 50MCG/NASAL SPRAY 16GM BOTTLE. NS SCH (08:15)
[2019-06-03] MEDS: dilTIAZem HCL 30 MG TABLET PO SCH ×2 (08:16→21:00)
[2019-06-03] MEDS: LACTOBACILLUS RHAMNOSUS GG 1 CAPSULE. PO SCH ×2 (08:16→19:34)
[2019-06-03] MEDS: QUEtiapine 25 MG TABLET. PO SCH ×2 (08:16→17:00)
[2019-06-03] MEDS: APIXABAN 5 MG TABLET. PO SCH ×2 (08:16→19:34)
[2019-06-03] MEDS: rOPINIRole 0.5 MG TABLET. PO SCH ×3 (08:16→19:34)
[2019-06-03] MEDS: SERTRALINE 50 MG TABLET. PO SCH (08:17)
[2019-06-03] MEDS: CETIRIZINE HCL 10 MG TABLET PO SCH (08:17)
[2019-06-03] MEDS: ALLOPURINOL 300 MG TABLET. PO SCH (08:17)
[2019-06-03] MEDS: NICOTINE 14MG PATCH. TD SCH (08:17)
[2019-06-03] MEDS: GABAPENTIN 300 MG CAPSULE. PO SCH ×4 (08:18→19:34)
[2019-06-03] MEDS: BUDESONIDE 0.5 MG/2 ML NEBU NEB SCH ×2 (09:40→20:05)
[2019-06-03 16:26] VITALS: BP 138/54
[2019-06-03 19:33] VITALS: BP 108/73
[2019-06-03] MEDS: DIVALPROEX ER 500 MG TAB.ER.24H PO SCH (19:34)
[2019-06-03] MEDS: traZODone 50 MG TABLET. PO SCH (19:34)
[2019-06-03] MEDS: ATORVASTATIN CALCIUM 20 MG TABLET PO SCH (19:34)
--- NOTE | 2019-06-03 23:03 | PDOC ---
Exam Note: Samm Note: Please also refer to the separate dictated note~for this date of service dictated separately.~Patient seen individually. Discussed the patient with Nursing staff reviewed the chart.~Reviewed interim history and current functioning. Reviewed vital signs,~Labs/ Radiology~and current medications noted below. Continue current treatment with the changes noted in the dictated addendum note Assessment: Vital Signs/I&O: Vital Signs Date Time Temp Pulse Resp B/P (MAP) Pulse Ox O2 Delivery O2 Flow Rate FiO2 06/03/19 21:51 84 108/73 06/03/19 20:26 97 Room Air 06/03/19 19:33 98.2 18 I & O 06/02/19 06/02/19 06/03/19 15:00 23:00 07:00 Intake Total 960 ml 480 ml Balance 960 ml 480 ml Current Medications: I have reviewed the current psychotropics carefully including drug interactions. Risk benefit ratio favors no change other than as noted in my dictated progress note. Diagnosis: Problems: (1) Alcohol-induced persisting dementia (2) Anxiety disorder (3) Dementia associated with alcoholism with behavioral disturbance (4) Major neurocognitive disorder, due to vascular disease, with behavioral disturbance, mild (5) Mixed Alzheimer's and vascular dementia with behavior disturbances (6) Impulse control disorder (7) Post traumatic stress disorder AKI COX MD Jun 03, 2019 23:03
[2019-06-04 06:24] VITALS: BP 100/66
[2019-06-04] MEDS: ALBUTEROL SULFATE 2.5 MG/3 ML NEBU. NEB SCH ×4 (06:27→20:00)
[2019-06-04] MEDS: dilTIAZem HCL 30 MG TABLET PO SCH ×2 (08:09→20:09)
[2019-06-04] MEDS: DONEPEZIL HCL 10 MG TABLET PO SCH (08:09)
[2019-06-04] MEDS: FLUTICASONE 50MCG/NASAL SPRAY 16GM BOTTLE. NS SCH (08:09)
[2019-06-04] MEDS: rOPINIRole 0.5 MG TABLET. PO SCH ×3 (08:10→20:10)
[2019-06-04] MEDS: SERTRALINE 50 MG TABLET. PO SCH (08:10)
[2019-06-04] MEDS: QUEtiapine 25 MG TABLET. PO SCH ×2 (08:10→16:54)
[2019-06-04] MEDS: LACTOBACILLUS RHAMNOSUS GG 1 CAPSULE. PO SCH ×2 (08:10→20:09)
[2019-06-04] MEDS: ALLOPURINOL 300 MG TABLET. PO SCH (08:10)
[2019-06-04] MEDS: APIXABAN 5 MG TABLET. PO SCH ×2 (08:10→20:10)
[2019-06-04] MEDS: CETIRIZINE HCL 10 MG TABLET PO SCH (08:11)
[2019-06-04] MEDS: NICOTINE 14MG PATCH. TD SCH (08:11)
[2019-06-04] MEDS: GABAPENTIN 300 MG CAPSULE. PO SCH ×4 (08:12→20:09)
[2019-06-04] MEDS: BUDESONIDE 0.5 MG/2 ML NEBU NEB SCH ×2 (09:40→20:00)
[2019-06-04 16:19] VITALS: BP 103/71
[2019-06-04] MEDS: DIVALPROEX ER 500 MG TAB.ER.24H PO SCH (20:08)
[2019-06-04] MEDS: ATORVASTATIN CALCIUM 20 MG TABLET PO SCH (20:09)
[2019-06-04] MEDS: traZODone 50 MG TABLET. PO SCH (20:09)
[2019-06-04 20:18] VITALS: BP 99/61
--- NOTE | 2019-06-04 22:16 | PN ---
DATE: 06/02/2019 PSYCHIATRIC PROGRESS NOTE This late entry 06/02/2019 covers elements not covered in my initial note. SUBJECTIVE: I met with the patient in the evening of 06/02/2019. The patient slept 6-1/4 hours previous night. Per nursing report, he has been out and about, came to groups with Tra the activity therapist, a little more interactive, appropriate. He does have some questionable dyskinetic movements. We will monitor this. REVIEW OF SYSTEMS: No CV, , pulmonary, eye, ENT system symptoms on review. MENTAL STATUS EXAM: Oriented to himself and situation. Insight, judgment, recent and remote memory, attention, concentration, fund of knowledge poor, consistent with his diagnosis mentioned in my initial note. PLAN: No change from initial note. MAN Pastor COX MD DR: RHYS/alisa JOB#: [id number] / [id number]
--- NOTE | 2019-06-04 22:23 | PDOC ---
Exam Note: Samm Note: Please also refer to the separate dictated note~for this date of service dictated separately.~Patient seen individually. Discussed the patient with Nursing staff reviewed the chart.~Reviewed interim history and current functioning. Reviewed vital signs,~Labs/ Radiology~and current medications noted below. Continue current treatment with the changes noted in the dictated addendum note Assessment: Vital Signs/I&O: Vital Signs Date Time Temp Pulse Resp B/P (MAP) Pulse Ox O2 Delivery O2 Flow Rate FiO2 06/04/19 20:18 64 99/61 (74) 06/04/19 16:19 97.8 20 95 06/04/19 15:38 Room Air I & O 06/03/19 06/03/19 06/04/19 15:00 23:00 07:00 Intake Total 480 ml Balance 480 ml Current Medications: I have reviewed the current psychotropics carefully including drug interactions. Risk benefit ratio favors no change other than as noted in my dictated progress note. Diagnosis: Problems: (1) Alcohol-induced persisting dementia (2) Anxiety disorder (3) Dementia associated with alcoholism with behavioral disturbance (4) Major neurocognitive disorder, due to vascular disease, with behavioral disturbance, mild (5) Mixed Alzheimer's and vascular dementia with behavior disturbances (6) Impulse control disorder AKI COX MD Jun 04, 2019 22:23
[2019-06-05] MEDS: BUDESONIDE 0.5 MG/2 ML NEBU NEB SCH ×2 (05:03→20:07)
[2019-06-05] MEDS: ALBUTEROL SULFATE 2.5 MG/3 ML NEBU. NEB SCH ×4 (05:03→20:07)
[2019-06-05 05:34] VITALS: BP 106/66
[2019-06-05] MEDS: FLUTICASONE 50MCG/NASAL SPRAY 16GM BOTTLE. NS SCH (07:44)
[2019-06-05] MEDS: DONEPEZIL HCL 10 MG TABLET PO SCH (07:44)
[2019-06-05] MEDS: GABAPENTIN 300 MG CAPSULE. PO SCH ×4 (07:45→20:01)
[2019-06-05] MEDS: rOPINIRole 0.5 MG TABLET. PO SCH ×3 (07:45→20:01)
[2019-06-05] MEDS: APIXABAN 5 MG TABLET. PO SCH ×2 (07:45→20:01)
[2019-06-05] MEDS: LACTOBACILLUS RHAMNOSUS GG 1 CAPSULE. PO SCH ×2 (07:45→20:01)
[2019-06-05] MEDS: dilTIAZem HCL 30 MG TABLET PO SCH (07:45)
[2019-06-05] MEDS: NICOTINE 14MG PATCH. TD SCH (07:46)
[2019-06-05] MEDS: CETIRIZINE HCL 10 MG TABLET PO SCH (07:46)
[2019-06-05] MEDS: QUEtiapine 25 MG TABLET. PO SCH ×2 (07:46→17:02)
[2019-06-05] MEDS: SERTRALINE 50 MG TABLET. PO SCH (07:46)
[2019-06-05] MEDS: ALLOPURINOL 300 MG TABLET. PO SCH (07:46)
[2019-06-05 09:31] LABS: BASO # 0.1 x10^3/uL (0.0-0.2); BASO % 1 % (0-3); EOS # 0.1 x10^3/uL (0.0-0.7); EOS % 1 % (0-3); HEMATOCRIT 40.8 % (39.0-53.0); HEMOGLOBIN 13.3 g/dL (13.0-17.5); LYMPH # 1.5 x10^3/uL (1.0-4.8); LYMPH % 14 % (24-48); MEAN CORPUSCULAR HEMOGLOBIN 32 pg (25-35); MEAN CORPUSCULAR HGB CONC 33 g/dL (31-37); MEAN CORPUSCULAR VOLUME 98 fL (79-100); MONO # 0.5 x10^3/uL (0.0-1.1); MONO % 5 % (0-9); NEUT # 8.5 x10^3uL (1.8-7.7); NEUT % 80 % (31-73); PLATELET COUNT 194 x10^3/uL (140-400); RED BLOOD COUNT 4.19 x10^6/uL (4.30-5.70); RED CELL DISTRIBUTION WIDTH 15.2 % (11.5-14.5); WHITE BLOOD COUNT 10.6 x10^3/uL (4.0-11.0)
[2019-06-05 09:51] LABS: ALBUMIN/GLOBULIN RATIO 0.8 (1.0-1.7); CALCIUM 9.1 mg/dL (8.5-10.1); CREATININE 0.9 mg/dL (0.7-1.3); GFR 83.7; POTASSIUM 4.2 mmol/L (3.5-5.1); TOTAL BILIRUBIN 0.3 mg/dL (0.2-1.0); TOTAL PROTEIN 6.6 g/dL (6.4-8.2)
[2019-06-05 10:06] LABS: % EOS 2 % (0-5); % LYMPHS 10 % (24-48); % MONOS 4 % (0-10); % SEGS 84 % (35-66); PLT ESTIMATE ADEQUATE (ADEQUATE)
--- NOTE | 2019-06-05 12:56 | PN ---
DATE: 06/04/2019 This late entry, 06/04/2019, covers elements not covered in my initial note. SUBJECTIVE: I met with the patient evening of 06/04/2019. The patient slept 6-3/4 hours previous night. He is alert, oriented to his birthday and felt he is 61 years old. He is attending groups more interactive. REVIEW OF SYSTEMS: No CV, , pulmonary, eye, ENT system symptoms on review. Reliability poor. MENTAL STATUS EXAM: Oriented to himself. Insight, judgment, recent and remote memory, attention, concentration, fund of knowledge poor, consistent with his diagnosis mentioned in my initial note. PLAN: No change from initial note for now. MAN Pastor COX MD DR: RHYS/alisa JOB#: [id number] / [id number]
[2019-06-05 16:02] VITALS: BP 101/62
[2019-06-05] MEDS: traZODone 50 MG TABLET. PO SCH (20:01)
[2019-06-05] MEDS: ATORVASTATIN CALCIUM 20 MG TABLET PO SCH (20:02)
[2019-06-05] MEDS: DIVALPROEX ER 500 MG TAB.ER.24H PO SCH (20:03)
--- NOTE | 2019-06-05 22:16 | PN ---
DATE: 06/03/2019 PSYCHIATRIC PROGRESS NOTE This late entry 06/03/2019 covers elements not covered in my initial note. SUBJECTIVE: I met with the patient in the evening of 06/03/2019. The patient slept reasonably previous night. He has been having a good day, cooperative with his medications, interactive and pleasant. REVIEW OF SYSTEMS: No CV, , pulmonary, eye, ENT system symptoms on review. Reliability poor. MENTAL STATUS EXAM: Oriented to himself. Insight, judgment, recent and remote memory, attention, concentration, fund of knowledge poor, consistent with his diagnosis mentioned in my initial note. PLAN: No change from initial note. MAN Pastor COX MD DR: RHYS/alisa JOB#: [id number] / [id number]
[2019-06-06] MEDS ORDERED: ACET325T9 PO (00:31)
[2019-06-06] MEDS ORDERED: CETI10TA16 PO (00:33)
[2019-06-06] MEDS ORDERED: DIVA500T17 PO (00:36)
[2019-06-06] MEDS ORDERED: FLUT16SP21 NS (00:38)
[2019-06-06] MEDS ORDERED: LACT1CAP19 PO (00:40)
[2019-06-06] MEDS ORDERED: MAG30ORA2 PO (00:43)
[2019-06-06] MEDS ORDERED: MAGN2400 PO (00:44)
[2019-06-06] MEDS ORDERED: METH29OI TP (00:46)
[2019-06-06] MEDS ORDERED: OLAN5TAB5 PO (00:47)
[2019-06-06] MEDS ORDERED: QUET25TA PO (00:49)
[2019-06-06] MEDS ORDERED: SERT50TA PO (00:50)
[2019-06-06] MEDS ORDERED: ROPI0.25 PO (00:51)
[2019-06-06] MEDS ORDERED: TRAZ-120 PO ×2 (00:52→00:55)
[2019-06-06] MEDS: ALBUTEROL SULFATE 2.5 MG/3 ML NEBU. NEB SCH ×2 (05:14→10:04)
[2019-06-06 05:36] VITALS: BP 109/71
[2019-06-06] MEDS: SERTRALINE 50 MG TABLET. PO SCH (07:34)
[2019-06-06] MEDS: CETIRIZINE HCL 10 MG TABLET PO SCH (07:35)
[2019-06-06] MEDS: ALLOPURINOL 300 MG TABLET. PO SCH (07:35)
[2019-06-06] MEDS: APIXABAN 5 MG TABLET. PO SCH (07:35)
[2019-06-06] MEDS: LACTOBACILLUS RHAMNOSUS GG 1 CAPSULE. PO SCH (07:35)
[2019-06-06] MEDS: rOPINIRole 0.5 MG TABLET. PO SCH ×2 (07:35→12:30)
[2019-06-06] MEDS: DONEPEZIL HCL 10 MG TABLET PO SCH (07:35)
[2019-06-06] MEDS: QUEtiapine 25 MG TABLET. PO SCH (07:37)
[2019-06-06] MEDS: NICOTINE 14MG PATCH. TD SCH (07:38)
[2019-06-06] MEDS: GABAPENTIN 300 MG CAPSULE. PO SCH ×2 (07:40→12:30)
[2019-06-06] MEDS: FLUTICASONE 50MCG/NASAL SPRAY 16GM BOTTLE. NS SCH (07:42)
--- NOTE | 2019-06-06 08:45 | PDOC ---
Exam Note: Samm Note: Late entry for DOS 06/05/2019. Please also refer to the separate dictated note~for this date of service dictated separately.~Patient seen individually. Discussed the patient with Nursing staff reviewed the chart.~Reviewed interim history and current functioning. Reviewed vital signs,~Labs/ Radiology~and current medications noted below. Continue current treatment with the changes noted in the dictated addendum note Assessment: Vital Signs/I&O: Vital Signs Date Time Temp Pulse Resp B/P (MAP) Pulse Ox O2 Delivery O2 Flow Rate FiO2 06/06/19 05:36 97.5 56 22 109/71 (84) 93 Room Air I & O 06/05/19 06/05/19 06/06/19 14:59 22:59 06:59 Intake Total 840 ml 240 ml 120 ml Balance 840 ml 240 ml 120 ml Labs: Laboratory Tests Test 06/05/19 09:09 White Blood Count 10.6 x10^3/uL (4.0-11.0) Red Blood Count 4.19 x10^6/uL (4.30-5.70) L Hemoglobin 13.3 g/dL (13.0-17.5) Hematocrit 40.8 % (39.0-53.0) Mean Corpuscular Volume 98 fL (79-100) Mean Corpuscular Hemoglobin 32 pg (25-35) Mean Corpuscular Hemoglobin Concent 33 g/dL (31-37) Red Cell Distribution Width 15.2 % (11.5-14.5) H Platelet Count 194 x10^3/uL (140-400) Neutrophils (%) (Auto) 80 % (31-73) H Lymphocytes (%) (Auto) 14 % (24-48) L Monocytes (%) (Auto) 5 % (0-9) Eosinophils (%) (Auto) 1 % (0-3) Basophils (%) (Auto) 1 % (0-3) Neutrophils # (Auto) 8.5 x10^3uL (1.8-7.7) H Lymphocytes # (Auto) 1.5 x10^3/uL (1.0-4.8) Monocytes # (Auto) 0.5 x10^3/uL (0.0-1.1) Eosinophils # (Auto) 0.1 x10^3/uL (0.0-0.7) Basophils # (Auto) 0.1 x10^3/uL (0.0-0.2) Segmented Neutrophils % 84 % (35-66) H Lymphocytes % 10 % (24-48) L Monocytes % 4 % (0-10) Eosinophils % 2 % (0-5) Platelet Estimate Adequate (ADEQUATE) Sodium Level 144 mmol/L (136-145) Potassium Level 4.2 mmol/L (3.5-5.1) Chloride Level 104 mmol/L (98-107) Carbon Dioxide Level 31 mmol/L (21-32) Anion Gap 9 (6-14) Blood Urea Nitrogen 14 mg/dL (8-26) Creatinine 0.9 mg/dL (0.7-1.3) Estimated GFR (Cockcroft-Gault) 83.7 BUN/Creatinine Ratio 16 (6-20) Glucose Level 176 mg/dL (70-99) H Calcium Level 9.1 mg/dL (8.5-10.1) Total Bilirubin 0.3 mg/dL (0.2-1.0) Aspartate Amino Transferase (AST) 14 U/L (15-37) L Alanine Aminotransferase (ALT) 16 U/L (16-63) Alkaline Phosphatase 88 U/L (46-116) Total Protein 6.6 g/dL (6.4-8.2) Albumin 3.0 g/dL (3.4-5.0) L Albumin/Globulin Ratio 0.8 (1.0-1.7) L Current Medications: I have reviewed the current psychotropics carefully including drug interactions. Risk benefit ratio favors no change other than as noted in my dictated progress note. Diagnosis: Problems: (1) Alcohol-induced persisting dementia (2) Anxiety disorder (3) Dementia associated with alcoholism with behavioral disturbance (4) Major neurocognitive disorder, due to vascular disease, with behavioral disturbance, mild (5) Mixed Alzheimer's and vascular dementia with behavior disturbances (6) Impulse control disorder (7) Post traumatic stress disorder AKI COX MD Jun 06, 2019 08:45
[2019-06-06] MEDS: BUDESONIDE 0.5 MG/2 ML NEBU NEB SCH (10:04)
--- NOTE | 2019-06-06 11:25 | DS ---
DATE OF DISCHARGE: 06/06/2019 DISCHARGE SUMMARY/PSYCHIATRIC PROGRESS NOTE This note covers the elements not covered in my initial note of 06/06. REASON FOR ADMISSION: Please refer to the admission history for details. Briefly, the patient is a 68-year-old male referred to us from the [facility] on account of worsening confusion and a diagnosis of major neurocognitive disorder secondary to alcohol with delusions, behavioral disturbance. He had been agitated, aggressive, refusing medications, sexually inappropriate, masturbating in public, which is what prompted the referral to us from the [facility] on a [facility]. SIGNIFICANT FINDINGS AND CLINICAL COURSE: Following admission, the patient was seen daily individually by myself from a psychiatric standpoint, medical followup with Dr. Barros. The patient was quite confused, anxious, restless, agitated, quite disinhibited at admission. Adjustments were made in his psychotropics and he seemed to respond to a combination of Depakote ER 1000 mg at bedtime with a therapeutic valproic acid level of 64, Aricept 10 mg a day, Neurontin 300 mg 4 times a day, melatonin 3 mg at bedtime p.r.n. insomnia, Seroquel 12.5 mg 0900, 1700, Zyprexa p.r.n., and he was also on Requip 0.5 mg t.i.d. for some parkinsonian symptoms and trazodone 50 mg at bedtime, may repeat x 1 along with Zoloft 50 mg a day. REVIEW OF SYSTEMS: Prior to discharge on 06/06, no CV, , pulmonary, eye, ENT system symptoms on review. Reliability poor. MENTAL STATUS EXAM: Oriented to himself. Insight, judgment, recent and remote memory, attention, concentration, fund of knowledge poor consistent with his diagnosis. CONDITION AT DISCHARGE: Improved. FINAL DIAGNOSES: Major neurocognitive disorder, multifactorial, alcohol, possibly vascular Alzheimer's with delusion, depression, behavioral disturbance; anxiety disorder, unspecified; impulse control disorder, unspecified; past history of alcohol abuse dependence. Rest diagnosis unchanged from admission. DISCHARGE MEDICATIONS: Please refer to the MRAD. DISCHARGE INSTRUCTIONS: Outpatient psychiatric and medical followup at the nursing facility he is transferred to. Time for discharge day management greater than 30 minutes. MAN M. KENNY, MD DR: RHYS/alisa JOB#: [id number] / [id number]
--- NOTE | 2019-06-06 18:29 | PDOC ---
Exam Note: Samm Note: Please also refer to the separate dictated note~for this date of service dictated separately.~Patient seen individually. Discussed the patient with Nursing staff reviewed the chart.~Reviewed interim history and current functioning. Reviewed vital signs,~Labs/ Radiology~and current medications noted below. Continue current treatment with the changes noted in the dictated addendum note Assessment: Vital Signs/I&O: Vital Signs Date Time Temp Pulse Resp B/P (MAP) Pulse Ox O2 Delivery O2 Flow Rate FiO2 06/06/19 10:07 95 Room Air 06/06/19 05:36 97.5 56 22 109/71 (84) I & O 06/05/19 06/05/19 06/06/19 15:00 23:00 07:00 Intake Total 840 ml 240 ml 120 ml Balance 840 ml 240 ml 120 ml Current Medications: I have reviewed the current psychotropics carefully including drug interactions. Risk benefit ratio favors no change other than as noted in my dictated progress note. Diagnosis: Problems: (1) Post traumatic stress disorder (2) Impulse control disorder (3) Mixed Alzheimer's and vascular dementia with behavior disturbances (4) Major neurocognitive disorder, due to vascular disease, with behavioral disturbance, mild (5) Dementia associated with alcoholism with behavioral disturbance (6) Anxiety disorder (7) Alcohol-induced persisting dementia AKI COX MD Jun 06, 2019 18:29
--- NOTE | 2019-06-06 23:25 | PN ---
DATE: 06/05/2019 PSYCHIATRIC PROGRESS NOTE This late entry 06/05/2019 covers elements not covered in my initial note. SUBJECTIVE: I met with the patient in the evening of 06/05/2019. The patient slept 7-1/2 hours previous night. He is alert, oriented to his date of , but confused about his age. As before, he is attending groups. I met with him at length in his room. REVIEW OF SYSTEMS: Impaired ambulation. No CV, , pulmonary, eye system symptoms on review. MENTAL STATUS EXAM: Oriented to himself and situation. Speech has some latency, coherent. Abstraction fair, computation impaired, language function intact, attention span short. Mood and affect less withdrawn, less irritable, less labile. No suicidal or homicidal ideation. LABORATORY DATA: Reviewed. IMPRESSION: Unchanged from initial note. PLAN: No change from initial note with possible transition to fpc 06/06/2019. MAN Pastor COX MD DR: RHYS/alisa JOB#: [id number] / [id number]
== END 2019-06-06 15:15 | DRG 57 ==
LOC: GEROPSY 17:54
PROVIDERS: ADMIT Psychiatry & Neurology Psychiatry; ATTEND Psychiatry & Neurology Psychiatry
DX: G30.9 Alzheimer's disease, unspecified (principal); F10.27 Alcohol dependence with alcohol-induced persisting dementia; F01.51 Vascular dementia, unspecified severity, with behavioral disturbance; F02.81 Dementia in other diseases classified elsewhere, unspecified severity, with behavioral disturbance; N39.0 Urinary tract infection, site not specified; G25.81 Restless legs syndrome; F63.9 Impulse disorder, unspecified; F43.10 Post-traumatic stress disorder, unspecified; I25.10 Atherosclerotic heart disease of native coronary artery without angina pectoris; J44.9 Chronic obstructive pulmonary disease, unspecified; F32.9 Major depressive disorder, single episode, unspecified; E11.9 Type 2 diabetes mellitus without complications; E78.5 Hyperlipidemia, unspecified; M10.9 Gout, unspecified; Z66 Do not resuscitate; Z79.899 Other long term (current) drug therapy; Z85.46 Personal history of malignant neoplasm of prostate; Z87.891 Personal history of nicotine dependence; Z86.711 Personal history of pulmonary embolism
CPT/HCPCS: 36415; 71046; 71250; 80053; 80061; 80164; 81001; 82306; 83036; 83540; 83550; 83735; 84436; 84443; 84480; 85007; 85025; 86592; 87086; 87186; 93005; 94640; 94760; 99406; J7613; J7626